=== PATIENT | female | born 1935 | race Caucasian/White ===

== ENCOUNTER 2018-04-21 07:20 | Emergency (ER) | payer MEDICARE, BC ==
[~2018-04-21] VITALS: Ht 162.6 cm; Wt 89.0 kg
[~2018-04-21 07:20] MED LIST: DOCU100C40 PO; ESCI5TAB12 PO; FLO0.4C PO; HYDR12.597 PO; METH-348 PO; MIRT-92 PO; OLAN-1 PO; OXYB5TAB11 PO; POLY15DR57 EACHEYE; TOBDEXOO EACHEYE
[2018-04-21 09:05] LABS: BASOPHILS % (AUTO) 0.3 % (0-1); EOSINOPHILS # (AUTO) 0.3 X10'3 (0-0.9); EOSINOPHILS % (AUTO) 4.2 % (0-6); HEMOGLOBIN 11.4 g/dl (12.0-16.0); LYMPHOCYTES # (AUTO) 2.3 X10'3 (1.1-4.8); LYMPHOCYTES % (AUTO) 29.4 % (21-51); MEAN CORPUSCULAR HGB CONC 33.4 % (33.0-36.5); MEAN CORPUSCULAR VOLUME 95.8 FL (78-98); MEAN PLATELET VOLUME 9.1 FL (7.4-10.4); MONOCYTES # (AUTO) 0.7 X10'3 (0-0.9); MONOCYTES % (AUTO) 8.7 % (2-12); NEUTROPHILS # (AUTO) 4.4 X10'3 (1.8-7.7); NEUTROPHILS % (AUTO) 57.4 % (42-75); PLATELET COUNT 234 X10'3 (140-440); RED BLOOD COUNT 3.55 X10'6 (4.20-5.60); RED CELL DISTRIBUTION WIDTH 15.4 % (11.5-14.5); WHITE BLOOD COUNT 7.7 X10'3 (4.5-11.0)
[2018-04-21 09:08] LABS: ALANINE AMINOTRANSFERASE 24 U/L (12-78); ALBUMIN 3.8 G/DL (3.4-5.0); ALBUMIN/GLOBULIN RATIO 0.9 (1.1-1.5); ALKALINE PHOSPHATASE 91 IU/L (46-116); ANION GAP 10 (8-16); ASPARTATE AMINO TRANSFERASE 24 U/L (10-37); BILIRUBIN,TOTAL 0.3 MG/DL (0.1-1.0); BLOOD UREA NITROGEN 17 MG/DL (7-18); BUN/CREATININE RATIO 15.2 (6.6-38.0); CALCIUM 8.9 MG/DL (8.5-10.1); CHLORIDE 107 MMOL/L (99-107); CREATININE 1.12 MG/DL (0.40-0.90); GLUCOSE 88 MG/DL (70-104); POTASSIUM 4.1 MMOL/L (3.5-5.1); SODIUM 140 MMOL/L (135-145); TOTAL CARBON DIOXIDE 22.8 MMOL/L (24-32); TOTAL PROTEIN 8.1 G/DL (6.4-8.2); eGFR 46 ML/MIN
[2018-04-21 09:13] LABS: PARTIAL THROMBOPLASTIN TIME 28 SECONDS (22-32); PROTHROMBIN TIME 10.7 SECONDS (9.0-12.0)
[2018-04-21] MEDS ORDERED: HYDROcodone/acetaminophen 5mg/325mg tablet PO ONE (09:15)
[2018-04-21 09:16] LABS: MAGNESIUM 2.2 MG/DL (1.5-2.4)
[2018-04-21 09:38] LABS: ETHANOL < 0.010 GM/DL (0.0-0.010)
[2018-04-21 10:32] VITALS: BP 120/56
== END 2018-04-21 10:54 | disposition home or self-care (01) ==
LOC: ER 07:21
DX: S09.90XA Unspecified injury of head, initial encounter (principal); M79.645 Pain in left finger(s); M25.512 Pain in left shoulder; M25.552 Pain in left hip; G89.29 Other chronic pain; Z90.49 Acquired absence of other specified parts of digestive tract; Z88.5 Allergy status to narcotic agent; Z79.899 Other long term (current) drug therapy; Z98.890 Other specified postprocedural states; W19.XXXA Unspecified fall, initial encounter; Y93.89 Activity, other specified; Y92.89 Other specified places as the place of occurrence of the external cause; Y99.8 Other external cause status
CPT/HCPCS: 36415; 70450; 70486; 71045; 72125; 73030; 73140; 73502; 80053; 80320; 83735; 83880; 84484; 85025; 85610; 85730; 93005; 99285; A6449

== ENCOUNTER 2018-06-22 16:08 | Inpatient (IN) | payer MEDICARE, BC ==
[~2018-06-22] VITALS: Ht 162.6 cm; Wt 86.3 kg
[2018-06-22] MEDS ORDERED: normal saline 1000ML IV soln IVB ONE (16:15)
[2018-06-22 16:27] LABS: BASOPHILS % (AUTO) 0.3 % (0-1); EOSINOPHILS # (AUTO) 0.3 X10'3 (0-0.9); EOSINOPHILS % (AUTO) 5.2 % (0-6); HEMATOCRIT 31.9 % (35.0-45.0); HEMOGLOBIN 10.5 g/dl (12.0-16.0); LYMPHOCYTES # (AUTO) 1.6 X10'3 (1.1-4.8); LYMPHOCYTES % (AUTO) 25.7 % (21-51); MEAN CORPUSCULAR HEMOGLOBIN 30.7 PG (27.0-31.0); MEAN CORPUSCULAR HGB CONC 32.9 % (33.0-36.5); MEAN CORPUSCULAR VOLUME 93.2 FL (78-98); MEAN PLATELET VOLUME 8.8 FL (7.4-10.4); MONOCYTES # (AUTO) 0.7 X10'3 (0-0.9); MONOCYTES % (AUTO) 11.4 % (2-12); NEUTROPHILS # (AUTO) 3.5 X10'3 (1.8-7.7); NEUTROPHILS % (AUTO) 57.4 % (42-75); PLATELET COUNT 209 X10'3 (140-440); RED BLOOD COUNT 3.42 X10'6 (4.20-5.60); RED CELL DISTRIBUTION WIDTH 14.4 % (11.5-14.5); WHITE BLOOD COUNT 6.1 X10'3 (4.5-11.0)
[2018-06-22 16:48] LABS: ANION GAP 9 (8-16); BILIRUBIN,TOTAL 0.3 MG/DL (0.1-1.0); BLOOD UREA NITROGEN 29 MG/DL (7-18); BUN/CREATININE RATIO 19.7 (6.6-38.0); CALCIUM 8.2 MG/DL (8.5-10.1); CHLORIDE 102 MMOL/L (99-107); CREATININE 1.47 MG/DL (0.40-0.90); GLUCOSE 103 MG/DL (70-104); POTASSIUM 3.8 MMOL/L (3.5-5.1); SODIUM 139 MMOL/L (135-145); TOTAL CARBON DIOXIDE 27.7 MMOL/L (24-32); TOTAL PROTEIN 7.4 G/DL (6.4-8.2); eGFR 34 ML/MIN
[2018-06-22 16:49] LABS: ALANINE AMINOTRANSFERASE 25 U/L (12-78); ALBUMIN 3.3 G/DL (3.4-5.0); ALBUMIN/GLOBULIN RATIO 0.8 (1.1-1.5); ALKALINE PHOSPHATASE 99 IU/L (46-116); ASPARTATE AMINO TRANSFERASE 24 U/L (10-37)
[2018-06-22 16:56] LABS: TROPONIN I < 0.04 NG/ML (0.0-0.05)
[2018-06-22] MEDS: normal saline 1000ml 1,000 ML IV SCH ×2 (17:32→20:36)
[2018-06-22] MEDS ORDERED: magnesium 1gm/100ml D5W IVPB 100 ML IV PRN (17:35)
[2018-06-22] MEDS ORDERED: potassium Cl 20 mEq SR tablet PO PRN (17:35)
[2018-06-22] MEDS ORDERED: magnesium Cl slow-release 64mg tablet PO PRN (17:35)
[2018-06-22] MEDS ORDERED: ondansetron/PF 4mg/2ml inj IV PRN (17:35)
[2018-06-22] MEDS ORDERED: CefTRIAXone 2gm/D5W 50ml 50 ML IV ONE (17:35)
[2018-06-22] MEDS ORDERED: magnesium hydroxide 30ml (MOM) UD suspension PO PRN (17:35)
[2018-06-22] MEDS ORDERED: mag hydrox/Alum hydrox/simeth 30ml oral suspension PO PRN (17:35)
[2018-06-22] MEDS ORDERED: magnesium 4gm in 100ml NS 100 ML IV PRN (17:35)
[2018-06-22] MEDS ORDERED: potassium Cl 40MEQ/NS 500ml 500 ML IV PRN ×2 (17:35)
[2018-06-22 19:30] VITALS: BP 113/41
[2018-06-22] MEDS: acetaminophen 325mg tablet PO PRN (20:21)
[2018-06-22] MEDS ORDERED: LYSI500T40 PO (20:29)
[2018-06-22] MEDS ORDERED: CALC-467 PO (20:29)
[2018-06-22] MEDS ORDERED: D-3 PO (20:29)
[2018-06-22] MEDS ORDERED: ESCI20TA38 PO (20:29)
[2018-06-22] MEDS ORDERED: DOCU250C4 PO (20:29)
[2018-06-22] MEDS ORDERED: VITAMIN C TABLET PO (20:29)
[2018-06-22] MEDS ORDERED: FURO40TA4 PO (20:29)
[2018-06-22] MEDS ORDERED: MULT-1074 PO (20:29)
[2018-06-22] MEDS ORDERED: GLUC-131 PO (20:29)
[2018-06-22] MEDS: heparin, porcine 5000 units/ml vial SQ SCH (20:31)
[2018-06-22] MEDS ORDERED: olanzapine 10mg tablet PO ONE (21:40)
[2018-06-22] MEDS ORDERED: mirtazapine 15mg tablet PO ONE (21:40)
[2018-06-22 22:00] VITALS: BP 113/50
[2018-06-23 05:57] LABS: BASOPHILS % (AUTO) 0.6 % (0-1); EOSINOPHILS # (AUTO) 0.3 X10'3 (0-0.9); EOSINOPHILS % (AUTO) 6.2 % (0-6); HEMOGLOBIN 9.6 g/dl (12.0-16.0); LYMPHOCYTES # (AUTO) 1.8 X10'3 (1.1-4.8); LYMPHOCYTES % (AUTO) 35.7 % (21-51); MEAN CORPUSCULAR HEMOGLOBIN 30.9 PG (27.0-31.0); MEAN CORPUSCULAR HGB CONC 33.1 % (33.0-36.5); MEAN CORPUSCULAR VOLUME 93.4 FL (78-98); MEAN PLATELET VOLUME 9.1 FL (7.4-10.4); MONOCYTES # (AUTO) 0.6 X10'3 (0-0.9); MONOCYTES % (AUTO) 11.8 % (2-12); NEUTROPHILS # (AUTO) 2.3 X10'3 (1.8-7.7); NEUTROPHILS % (AUTO) 45.7 % (42-75); PLATELET COUNT 166 X10'3 (140-440); RED BLOOD COUNT 3.11 X10'6 (4.20-5.60); WHITE BLOOD COUNT 5.1 X10'3 (4.5-11.0)
[2018-06-23 06:00] VITALS: BP 133/62
[2018-06-23 06:35] LABS: ALANINE AMINOTRANSFERASE 15 U/L (12-78); ALBUMIN 2.6 G/DL (3.4-5.0); ALBUMIN/GLOBULIN RATIO 0.7 (1.1-1.5); ALKALINE PHOSPHATASE 77 IU/L (46-116); ANION GAP 5 (8-16); ASPARTATE AMINO TRANSFERASE 18 U/L (10-37); BILIRUBIN,TOTAL 0.3 MG/DL (0.1-1.0); BLOOD UREA NITROGEN 23 MG/DL (7-18); BUN/CREATININE RATIO 21.3 (6.6-38.0); CALCIUM 8.2 MG/DL (8.5-10.1); CHLORIDE 110 MMOL/L (99-107); CREATININE 1.08 MG/DL (0.40-0.90); GLUCOSE 88 MG/DL (70-104); MAGNESIUM 2.2 MG/DL (1.5-2.4); POTASSIUM 3.6 MMOL/L (3.5-5.1); SODIUM 143 MMOL/L (135-145); TOTAL PROTEIN 6.2 G/DL (6.4-8.2); eGFR 48 ML/MIN
[2018-06-23] MEDS: K and/or MAG REPLACEMENT MC SCH (08:00)
[2018-06-23] MEDS: heparin, porcine 5000 units/ml vial SQ SCH ×2 (08:07→20:37)
[2018-06-23] MEDS: CefTRIAXone/D5W-Rocephin 1gm 50 ML IV SCH (08:10)
[2018-06-23] MEDS ORDERED: POTA10TA21 PO (08:58)
[2018-06-23 10:00] VITALS: BP 113/57
[2018-06-23] MEDS ORDERED: pneumococcal 23-VAL P-sac vacc 25 mcg/0.5ml vial IMVAC ONE (10:00)
[2018-06-23] MEDS ORDERED: docusate sod 250mg capsule PO PRN (12:50)
[2018-06-23] MEDS ORDERED: escitalopram 20mg tablet PO SCH (12:50)
[2018-06-23 13:50] VITALS: BP 126/51
[2018-06-23 13:51] VITALS: BP_SYST 113; BP_SYST 119; BP_DIAS 57; BP_DIAS 61
[2018-06-23 18:00] VITALS: BP 114/49
[2018-06-23] MEDS: mirtazapine 15mg tablet PO SCH (20:34)
[2018-06-23] MEDS: olanzapine 10mg tablet PO SCH (20:35)
[2018-06-23] MEDS: lactobacillus rhamnosus 10,000 MMU CELLS/CAPSULE PO SCH (20:35)
[2018-06-23] MEDS: oxybutynin 5mg tablet PO SCH (20:36)
[2018-06-23] MEDS ORDERED: olanzapine 10mg tablet PO SCH (21:00)
[2018-06-23] MEDS ORDERED: mirtazapine 15mg tablet PO SCH (21:00)
[2018-06-23 22:00] VITALS: BP 113/49
[2018-06-24] MEDS: normal saline 1000ml 1,000 ML IV SCH ×2 (03:00→12:26)
[2018-06-24 06:00] VITALS: BP 133/51
[2018-06-24 06:10] LABS: BASOPHILS % (AUTO) 0.4 % (0-1); EOSINOPHILS # (AUTO) 0.3 X10'3 (0-0.9); EOSINOPHILS % (AUTO) 5.1 % (0-6); HEMOGLOBIN 9.5 g/dl (12.0-16.0); LYMPHOCYTES % (AUTO) 29.6 % (21-51); MEAN CORPUSCULAR HEMOGLOBIN 30.7 PG (27.0-31.0); MEAN CORPUSCULAR HGB CONC 32.8 % (33.0-36.5); MEAN CORPUSCULAR VOLUME 93.6 FL (78-98); MEAN PLATELET VOLUME 9.3 FL (7.4-10.4); MONOCYTES # (AUTO) 0.8 X10'3 (0-0.9); MONOCYTES % (AUTO) 11.8 % (2-12); NEUTROPHILS # (AUTO) 3.6 X10'3 (1.8-7.7); NEUTROPHILS % (AUTO) 53.1 % (42-75); PLATELET COUNT 165 X10'3 (140-440); RED CELL DISTRIBUTION WIDTH 13.9 % (11.5-14.5); WHITE BLOOD COUNT 6.8 X10'3 (4.5-11.0)
[2018-06-24 06:36] LABS: ALANINE AMINOTRANSFERASE 17 U/L (12-78); ALBUMIN 2.7 G/DL (3.4-5.0); ALBUMIN/GLOBULIN RATIO 0.7 (1.1-1.5); ALKALINE PHOSPHATASE 83 IU/L (46-116); ANION GAP 10 (8-16); ASPARTATE AMINO TRANSFERASE 18 U/L (10-37); BILIRUBIN,TOTAL 0.4 MG/DL (0.1-1.0); BLOOD UREA NITROGEN 13 MG/DL (7-18); BUN/CREATININE RATIO 13.8 (6.6-38.0); CHLORIDE 109 MMOL/L (99-107); CREATININE 0.94 MG/DL (0.40-0.90); GLUCOSE 85 MG/DL (70-104); MAGNESIUM 1.9 MG/DL (1.5-2.4); POTASSIUM 3.2 MMOL/L (3.5-5.1); SODIUM 144 MMOL/L (135-145); TOTAL CARBON DIOXIDE 25.5 MMOL/L (24-32); TOTAL PROTEIN 6.4 G/DL (6.4-8.2); eGFR 57 ML/MIN
[2018-06-24] MEDS ORDERED: LYSINE HCL 1000 MG PO SCH (08:00)
[2018-06-24] MEDS ORDERED: non-formulary drug (Multivitamin (Multi-Vitamin Daily) 1 EACH) PO SCH (08:00)
[2018-06-24] MEDS: K and/or MAG REPLACEMENT MC SCH (08:00)
[2018-06-24] MEDS: methylphenidate 5mg tablet PO SCH (08:42)
[2018-06-24] MEDS: lactobacillus rhamnosus 10,000 MMU CELLS/CAPSULE PO SCH ×2 (08:42→20:20)
[2018-06-24] MEDS: citalopram 20mg tablet PO SCH (08:42)
[2018-06-24] MEDS: potassium Cl 20 mEq SR tablet PO PRN ×3 (08:42→16:57)
[2018-06-24] MEDS: multivitamins, therapeutics tablet PO SCH (08:42)
[2018-06-24] MEDS: heparin, porcine 5000 units/ml vial SQ SCH ×2 (08:42→20:21)
[2018-06-24] MEDS: oxybutynin 5mg tablet PO SCH ×2 (08:42→20:20)
[2018-06-24] MEDS: CefTRIAXone/D5W-Rocephin 1gm 50 ML IV SCH (08:43)
[2018-06-24] MEDS: acetaminophen 325mg tablet PO PRN (08:58)
[2018-06-24 10:00] VITALS: BP 121/50
[2018-06-24] MEDS ORDERED: LORazepam 2 mg/ml vial IV ONE (12:00)
[2018-06-24 18:00] VITALS: BP 130/55
[2018-06-24] MEDS: mirtazapine 15mg tablet PO SCH (20:20)
[2018-06-24] MEDS: olanzapine 10mg tablet PO SCH (20:20)
[2018-06-24 22:00] VITALS: BP 130/68
[2018-06-25] MEDS: normal saline 1000ml 1,000 ML IV SCH (01:31)
[2018-06-25 05:16] VITALS: BP_SYST 128; BP_SYST 140; BP_SYST 155; BP_DIAS 51; BP_DIAS 64; BP_DIAS 70
[2018-06-25 06:00] VITALS: BP 128/51
[2018-06-25 07:04] LABS: BASOPHILS % (AUTO) 0.3 % (0-1); EOSINOPHILS # (AUTO) 0.3 X10'3 (0-0.9); HEMATOCRIT 28.1 % (35.0-45.0); HEMOGLOBIN 9.1 g/dl (12.0-16.0); LYMPHOCYTES # (AUTO) 1.7 X10'3 (1.1-4.8); LYMPHOCYTES % (AUTO) 26.8 % (21-51); MEAN CORPUSCULAR HEMOGLOBIN 30.4 PG (27.0-31.0); MEAN CORPUSCULAR HGB CONC 32.4 % (33.0-36.5); MEAN CORPUSCULAR VOLUME 93.8 FL (78-98); MEAN PLATELET VOLUME 9.5 FL (7.4-10.4); MONOCYTES # (AUTO) 0.7 X10'3 (0-0.9); MONOCYTES % (AUTO) 11.2 % (2-12); NEUTROPHILS # (AUTO) 3.7 X10'3 (1.8-7.7); NEUTROPHILS % (AUTO) 57.7 % (42-75); PLATELET COUNT 156 X10'3 (140-440); RED BLOOD COUNT 2.99 X10'6 (4.20-5.60); RED CELL DISTRIBUTION WIDTH 14.4 % (11.5-14.5); WHITE BLOOD COUNT 6.4 X10'3 (4.5-11.0)
[2018-06-25 07:16] LABS: % IRON SATURATION 23 % (11-46); IRON 49 UG/DL (49-151); TOTAL IRON BINDING CAPACITY 216 UG/DL (259-388)
[2018-06-25 07:35] LABS: ALANINE AMINOTRANSFERASE 14 U/L (12-78); ALBUMIN 2.5 G/DL (3.4-5.0); ALBUMIN/GLOBULIN RATIO 0.7 (1.1-1.5); ALKALINE PHOSPHATASE 77 IU/L (46-116); ANION GAP 8 (8-16); ASPARTATE AMINO TRANSFERASE 19 U/L (10-37); BILIRUBIN,TOTAL 0.4 MG/DL (0.1-1.0); BLOOD UREA NITROGEN 9 MG/DL (7-18); CALCIUM 7.6 MG/DL (8.5-10.1); CHLORIDE 111 MMOL/L (99-107); CREATININE 0.82 MG/DL (0.40-0.90); GLUCOSE 81 MG/DL (70-104); MAGNESIUM 1.8 MG/DL (1.5-2.4); POTASSIUM 3.3 MMOL/L (3.5-5.1); SODIUM 144 MMOL/L (135-145); TOTAL CARBON DIOXIDE 24.9 MMOL/L (24-32); eGFR 66 ML/MIN
[2018-06-25 07:38] LABS: FERRITIN 32 NG/ML (8-252)
[2018-06-25] MEDS: K and/or MAG REPLACEMENT MC SCH (08:00)
[2018-06-25] MEDS: CefTRIAXone/D5W-Rocephin 1gm 50 ML IV SCH (08:14)
[2018-06-25] MEDS: potassium Cl 20 mEq SR tablet PO PRN (08:15)
[2018-06-25] MEDS: citalopram 20mg tablet PO SCH (08:15)
[2018-06-25] MEDS: lactobacillus rhamnosus 10,000 MMU CELLS/CAPSULE PO SCH (08:16)
[2018-06-25] MEDS: multivitamins, therapeutics tablet PO SCH (08:16)
[2018-06-25] MEDS: oxybutynin 5mg tablet PO SCH (08:16)
[2018-06-25] MEDS: methylphenidate 5mg tablet PO SCH (08:16)
[2018-06-25] MEDS: heparin, porcine 5000 units/ml vial SQ SCH (08:17)
[2018-06-25 10:00] VITALS: BP 111/47
[2018-06-25] MEDS ORDERED: LACT1CAP26 PO (13:15)
[2018-06-25] MEDS ORDERED: CEPH250T PO (13:15)
== END 2018-06-25 17:10 | disposition home health service (06) | DRG 602 ==
LOC: ER 16:08 → ED HOLD 17:32 → EDBEDREQ 18:54 → ORTHO 4S 19:47
PROVIDERS: ADMIT Internal Medicine; ATTEND Family Medicine
DX: L03.115 Cellulitis of right lower limb (principal); N17.0 Acute kidney failure with tubular necrosis; L03.116 Cellulitis of left lower limb; I95.1 Orthostatic hypotension; N18.9 Chronic kidney disease, unspecified; R29.6 Repeated falls; S00.03XA Contusion of scalp, initial encounter; S46.911A Strain of unspecified muscle, fascia and tendon at shoulder and upper arm level, right arm, initial encounter; F32.9 Major depressive disorder, single episode, unspecified; F41.9 Anxiety disorder, unspecified; G89.29 Other chronic pain; M54.9 Dorsalgia, unspecified; I89.0 Lymphedema, not elsewhere classified; E86.0 Dehydration; W18.39XA Other fall on same level, initial encounter; D63.8 Anemia in other chronic diseases classified elsewhere; E87.6 Hypokalemia; N32.81 Overactive bladder; Z90.49 Acquired absence of other specified parts of digestive tract; Z23 Encounter for immunization; Z88.5 Allergy status to narcotic agent; Z79.899 Other long term (current) drug therapy; Z87.440 Personal history of urinary (tract) infections; Z80.9 Family history of malignant neoplasm, unspecified; Z80.1 Family history of malignant neoplasm of trachea, bronchus and lung; Z81.8 Family history of other mental and behavioral disorders; Z82.5 Family history of asthma and other chronic lower respiratory diseases; Y93.89 Activity, other specified; Y92.89 Other specified places as the place of occurrence of the external cause; Y99.8 Other external cause status
CPT/HCPCS: 36415; 70450; 70551; 71045; 73030; 80053; 82728; 83540; 83550; 83735; 83880; 84484; 85025; 87070; 93005; 93306; 93880; 97110; 97116; 97161; 99285; G0378; J0696; J1644; J2060; J3490; J7030

== ENCOUNTER 2018-07-09 05:34 | Emergency (ER) | payer MEDICARE, BC ==
[~2018-07-09] VITALS: Ht 167.6 cm; Wt 90.9 kg
[~2018-07-09 05:34] MED LIST changes: +CALC-467 PO; +CEPH250T PO; +D-3 PO; -DOCU100C40 PO; +DOCU250C4 PO; +ESCI20TA38 PO; -ESCI5TAB12 PO; -FLO0.4C PO; +GLUC-131 PO; -HYDR12.597 PO; +LACT1CAP26 PO; +LYSI500T40 PO; +MULT-1074 PO; -POLY15DR57 EACHEYE; -TOBDEXOO EACHEYE; +VITAMIN C TABLET PO
[2018-07-09] MEDS ORDERED: TETanus/Pertussis (Acell)/Diphther VAC/PF (Tdap-Adult) 0.5ml syringe IM ONE (06:30)
[2018-07-09] MEDS ORDERED: ACET-3068 PO (07:07)
[2018-07-09] MEDS ORDERED: HYDROcodone/acetaminophen 5mg/325mg tablet PO ONE (07:10)
[2018-07-09] MEDS ORDERED: ibuprofen 200mg tablet PO ONE (07:25)
[2018-07-09 07:32] VITALS: BP 127/61
== END 2018-07-09 07:42 | disposition home or self-care (01) ==
LOC: ER 05:34
DX: S00.531A Contusion of lip, initial encounter (principal); S00.31XA Abrasion of nose, initial encounter; G89.29 Other chronic pain; Z90.49 Acquired absence of other specified parts of digestive tract; Z88.5 Allergy status to narcotic agent; Z79.2 Long term (current) use of antibiotics; Z79.899 Other long term (current) drug therapy; Z87.891 Personal history of nicotine dependence; W06.XXXA Fall from bed, initial encounter; Y93.89 Activity, other specified; Y92.89 Other specified places as the place of occurrence of the external cause; Y99.8 Other external cause status
CPT/HCPCS: 90471; 90715; 99283

== ENCOUNTER 2018-11-21 16:06 | Inpatient (IN) | payer MEDICARE, BC | END 2018-11-28 15:30 | LOC: SUR 3N 11-23 05:44 → ER 16:06 → ED HOLD 20:35 → SUR 3N 22:17 | DX: A41.9 Sepsis, unspecified organism (principal); G93.41 Metabolic encephalopathy; L03.115 Cellulitis of right lower limb; L03.116 Cellulitis of left lower limb; G93.40 Encephalopathy, unspecified; E44.0 Moderate protein-calorie malnutrition; R65.20 Severe sepsis without septic shock; E86.0 Dehydration; F02.80 Dementia in other diseases classified elsewhere, unspecified severity, without behavioral disturbance, psychotic disturbance, mood disturbance, and anxiety; I89.0 Lymphedema, not elsewhere classified ==

== ENCOUNTER 2021-03-12 19:29 | Emergency (ER) | payer MEDICARE, BC ==
[~2021-03-12] VITALS: Ht 165.1 cm; Wt 72.0 kg
[~2021-03-12 19:29] MED LIST changes: +ASCO-134 PO; -CALC-467 PO; -CEPH250T PO; -D-3 PO; -DOCU250C4 PO; +DONE5TAB7 PO; -ESCI20TA38 PO; +ESCI20TA39 PO; -GLUC-131 PO; -LACT1CAP26 PO; -LYSI500T40 PO; -METH-348 PO; +METH5TAB4 PO; -MULT-1074 PO; +MULT-1085 PO; -OLAN-1 PO; -OXYB5TAB11 PO; +OXYB5TAB16 PO; +VALA500T41 PO; -VITAMIN C TABLET PO
--- NOTE | 2021-03-12 19:56 | NUR ---
DAUGHTER SILVIA POE PHONE NUMBER [phone]
[2021-03-12] MEDS ORDERED: CHOL200013 (20:05)
[2021-03-12 20:06] LABS: BASOPHILS # (AUTO) 0.1 X10'3 (0-0.2); BASOPHILS % (AUTO) 0.6 % (0-1); EOSINOPHILS # (AUTO) 0.2 X10'3 (0-0.9); EOSINOPHILS % (AUTO) 2.2 % (0-6); HEMATOCRIT 35.3 % (35.0-45.0); HEMOGLOBIN 11.7 g/dl (12.0-16.0); LYMPHOCYTES % (AUTO) 24.3 % (21-51); MEAN CORPUSCULAR HEMOGLOBIN 31.6 PG (27.0-31.0); MEAN CORPUSCULAR HGB CONC 33.2 g/dL (33.0-36.5); MEAN CORPUSCULAR VOLUME 95.1 FL (78-98); MEAN PLATELET VOLUME 9.4 FL (7.4-10.4); MONOCYTES % (AUTO) 11.3 % (2-12); NEUTROPHILS # (AUTO) 5.2 X10'3 (1.8-7.7); NEUTROPHILS % (AUTO) 61.6 % (42-75); PLATELET COUNT 261 X10'3 (140-440); RED BLOOD COUNT 3.71 X10'6 (4.20-5.60); RED CELL DISTRIBUTION WIDTH 15.4 % (11.5-14.5); WHITE BLOOD COUNT 8.4 X10'3 (4.5-11.0)
[2021-03-12 20:24] LABS: ALANINE AMINOTRANSFERASE 23 U/L (12-78); ALBUMIN 3.1 G/DL (3.4-5.0); ALBUMIN/GLOBULIN RATIO 0.6 (1.1-1.5); ALKALINE PHOSPHATASE 81 IU/L (46-116); ANION GAP 10 (8-16); ASPARTATE AMINO TRANSFERASE 38 U/L (10-37); BILIRUBIN,TOTAL 0.4 MG/DL (0.1-1.0); BLOOD UREA NITROGEN 20 MG/DL (7-18); BUN/CREATININE RATIO 16.7 (6.6-38.0); CALCIUM 8.9 MG/DL (8.5-10.1); CHLORIDE 102 MMOL/L (99-107); GLUCOSE 126 MG/DL (70-104); LIPASE 133 U/L (73-393); POTASSIUM 4.2 MMOL/L (3.5-5.1); SODIUM 137 MMOL/L (135-145); TOTAL CARBON DIOXIDE 24.9 MMOL/L (24-32); TOTAL PROTEIN 8.6 G/DL (6.4-8.2); eGFR 42 ML/MIN
--- NOTE | 2021-03-12 21:08 | NUR ---
Patient resting in stretcher- waiting to be seen by provider. Even and unlabored respiorations- no complaints at this time states she is "feeling pretty good".
[2021-03-12] MEDS ORDERED: iohexol 300mg/ml 100ml inj. ONE (22:13)
--- NOTE | 2021-03-12 22:21 | NUR ---
patient taken to CT
[2021-03-13 00:31] VITALS: BP 101/60
== END 2021-03-13 00:32 | disposition home or self-care (01) ==
LOC: ER 19:30
DX: R10.31 Right lower quadrant pain (principal); K59.00 Constipation, unspecified; Z87.440 Personal history of urinary (tract) infections; Z98.890 Other specified postprocedural states; Z79.899 Other long term (current) drug therapy
CPT/HCPCS: 36415; 74177; 80053; 83690; 85025; 99285; Q9967

== ENCOUNTER 2021-03-24 14:59 | Observation (INO) | payer MEDICARE, BC ==
[~2021-03-24] VITALS: Ht 165.1 cm; Wt 59.1 kg
[2021-03-24 11:30] VITALS: BP 122/60
[~2021-03-24 14:59] MED LIST changes: +CHOL200013 PO
[2021-03-24 16:36] LABS: BASOPHILS # (AUTO) 0.1 X10'3 (0-0.2); BASOPHILS % (AUTO) 0.8 % (0-1); EOSINOPHILS # (AUTO) 0.3 X10'3 (0-0.9); EOSINOPHILS % (AUTO) 4.1 % (0-6); HEMATOCRIT 33.6 % (35.0-45.0); HEMOGLOBIN 11.2 g/dl (12.0-16.0); LYMPHOCYTES # (AUTO) 2.4 X10'3 (1.1-4.8); LYMPHOCYTES % (AUTO) 31.7 % (21-51); MEAN CORPUSCULAR HEMOGLOBIN 31.9 PG (27.0-31.0); MEAN CORPUSCULAR HGB CONC 33.3 g/dL (33.0-36.5); MEAN CORPUSCULAR VOLUME 95.9 FL (78-98); MEAN PLATELET VOLUME 9.3 FL (7.4-10.4); MONOCYTES # (AUTO) 0.7 X10'3 (0-0.9); MONOCYTES % (AUTO) 9.1 % (2-12); NEUTROPHILS # (AUTO) 4.2 X10'3 (1.8-7.7); NEUTROPHILS % (AUTO) 54.3 % (42-75); PLATELET COUNT 239 X10'3 (140-440); RED BLOOD COUNT 3.51 X10'6 (4.20-5.60); RED CELL DISTRIBUTION WIDTH 15.3 % (11.5-14.5); WHITE BLOOD COUNT 7.7 X10'3 (4.5-11.0)
[2021-03-24] MEDS ORDERED: predniSONE 20 mg tablet PO ONE (16:40)
[2021-03-24] MEDS ORDERED: fluconazole 150mg tablet PO ONE (16:40)
[2021-03-24] MEDS ORDERED: ondansetron/PF 4mg/2ml inj IV PRN (16:40)
[2021-03-24] MEDS ORDERED: mag hydrox/Alum hydrox/simeth 30ml oral suspension PO PRN (16:40)
[2021-03-24] MEDS ORDERED: acetaminophen 325mg tablet PO PRN (16:40)
[2021-03-24] MEDS ORDERED: magnesium hydroxide 30ml (MOM) UD suspension PO PRN (16:40)
[2021-03-24] MEDS ORDERED: VALA500T41 PO (16:51)
[2021-03-24] MEDS ORDERED: MIRT-87 PO (16:51)
[2021-03-24] MEDS ORDERED: OXYB5TAB16 PO (16:51)
[2021-03-24 16:56] LABS: ALANINE AMINOTRANSFERASE 24 U/L (12-78); ALBUMIN 3.5 G/DL (3.4-5.0); ALBUMIN/GLOBULIN RATIO 0.7 (1.1-1.5); ALKALINE PHOSPHATASE 80 IU/L (46-116); ANION GAP 11 (8-16); ASPARTATE AMINO TRANSFERASE 31 U/L (10-37); BILIRUBIN,TOTAL 0.3 MG/DL (0.1-1.0); BLOOD UREA NITROGEN 31 MG/DL (7-18); BUN/CREATININE RATIO 25.6 (6.6-38.0); C-REACTIVE PROTEIN 0.35 MG/DL (0.0-0.5); CALCIUM 8.6 MG/DL (8.5-10.1); CHLORIDE 104 MMOL/L (99-107); CREATININE 1.21 MG/DL (0.40-0.90); GLUCOSE 90 MG/DL (70-104); POTASSIUM 4.3 MMOL/L (3.5-5.1); SODIUM 137 MMOL/L (135-145); TOTAL CARBON DIOXIDE 22.3 MMOL/L (24-32); TOTAL PROTEIN 8.5 G/DL (6.4-8.2); eGFR 42 ML/MIN
[2021-03-24] MEDS: nystatin 500,000 unit/5ML UD oral suspension PO SCH (20:16)
[2021-03-24] MEDS: diphenhydrAMINE 25mg capsule PO SCH (20:16)
[2021-03-24] MEDS: oxybutynin 5mg tablet PO SCH (20:17)
[2021-03-24 20:24] LABS: CLARITY,URINE SLIGHTLY CLOUDY (Clear); COLOR,URINE YELLOW (Yellow); GLUCOSE, URINE NEGATIVE (Neg); KETONES,URINE NEGATIVE (Neg); LEUKOCYTE ESTERASE ,URINE MODERATE (Neg); NITRITES, URINE NEGATIVE (Neg); OCCULT BLOOD,URINE NEGATIVE (Neg); PROTEIN,URINE NEGATIVE (Neg); UROBILINOGEN,URINE 0.2 E.U/dL (0.2-1.0)
[2021-03-24 20:30] LABS: UA COLLECTION TYPE STRAIGHT CATH
[2021-03-24 20:31] LABS: BACTERIA,URINE FEW /HPF (Neg); RBC,URINE 0-2 /HPF (0-2); SQUAMOUS EPITHELIAL CELL,UR FEW /LPF (FEW)
[2021-03-24] MEDS ORDERED: mirtazapine 15mg tablet PO SCH (21:00)
[2021-03-24] MEDS ORDERED: donepezil 5mg tablet PO SCH (21:00)
[2021-03-24] MEDS ORDERED: temazepam 15mg capsule PO ONE (22:45)
[2021-03-24 23:30] VITALS: BP 122/60
[2021-03-25] MEDS: diphenhydrAMINE 25mg capsule PO SCH ×2 (02:27→09:00)
[2021-03-25 05:53] LABS: BASOPHILS % (AUTO) 0.2 % (0-1); EOSINOPHILS % (AUTO) 0.1 % (0-6); HEMATOCRIT 34.6 % (35.0-45.0); HEMOGLOBIN 11.5 g/dl (12.0-16.0); LYMPHOCYTES # (AUTO) 1.4 X10'3 (1.1-4.8); LYMPHOCYTES % (AUTO) 26.2 % (21-51); MEAN CORPUSCULAR HEMOGLOBIN 32.3 PG (27.0-31.0); MEAN CORPUSCULAR HGB CONC 33.4 g/dL (33.0-36.5); MEAN CORPUSCULAR VOLUME 96.8 FL (78-98); MEAN PLATELET VOLUME 9.5 FL (7.4-10.4); MONOCYTES # (AUTO) 0.1 X10'3 (0-0.9); MONOCYTES % (AUTO) 2.3 % (2-12); NEUTROPHILS # (AUTO) 3.9 X10'3 (1.8-7.7); NEUTROPHILS % (AUTO) 71.2 % (42-75); PLATELET COUNT 222 X10'3 (140-440); RED BLOOD COUNT 3.57 X10'6 (4.20-5.60); RED CELL DISTRIBUTION WIDTH 15.4 % (11.5-14.5); WHITE BLOOD COUNT 5.4 X10'3 (4.5-11.0)
[2021-03-25 06:14] LABS: ALBUMIN 3.4 G/DL (3.4-5.0); ANION GAP 10 (8-16); BLOOD UREA NITROGEN 29 MG/DL (7-18); CALCIUM 8.8 MG/DL (8.5-10.1); CHLORIDE 103 MMOL/L (99-107); CREATININE 1.16 MG/DL (0.40-0.90); GLUCOSE 129 MG/DL (70-104); POTASSIUM 4.8 MMOL/L (3.5-5.1); SODIUM 137 MMOL/L (135-145); TOTAL CARBON DIOXIDE 24.3 MMOL/L (24-32); eGFR 44 ML/MIN
--- NOTE | 2021-03-25 06:28 | NUR ---
Problems reprioritized. Patient report given, questions answered & plan of care reviewed with TAVIA SWANSON.
--- NOTE | 2021-03-25 06:45 | NUR ---
Patient in room [facility]ICH 348B. I have received report from SKY ARZOLA & SKY XIE and had the opportunity to ask questions and assume patient care.
[2021-03-25 07:00] VITALS: BP 99/47
[2021-03-25] MEDS ORDERED: fluconazole 100mg tablet PO SCH (08:00)
[2021-03-25] MEDS ORDERED: ascorbic acid 500mg tablet PO SCH (08:00)
[2021-03-25] MEDS ORDERED: multivitamins, therapeutics tablet PO SCH (08:00)
[2021-03-25] MEDS ORDERED: cholecalciferol (vitamin D3) 1,000 unit (25mcg) tablet PO SCH (08:00)
[2021-03-25] MEDS ORDERED: methylphenidate 5mg tablet PO SCH (08:00)
[2021-03-25] MEDS ORDERED: enoxaparin 40mg/0.4ml syringe SUBCUT SCH (08:00)
[2021-03-25] MEDS ORDERED: valacyclovir 500mg tablet PO SCH (08:00)
[2021-03-25] MEDS ORDERED: ESCITALOPRAM OXALATE 5 MG TABLET PO SCH (08:00)
[2021-03-25] MEDS: oxybutynin 5mg tablet PO SCH (08:59)
[2021-03-25] MEDS: nystatin 500,000 unit/5ML UD oral suspension PO SCH (09:00)
[2021-03-25 11:00] VITALS: BP 126/52
[2021-03-25] MEDS ORDERED: NYST1000 PO (11:06)
--- NOTE | 2021-03-25 12:31 | NUR ---
PATIENT STABLE AND APPROPRIATE FOR DISCHARGE, IV WAS NOT TAKEN OUT, FAMILY INFORMED FENCE LABORER WAS THERE WITH FAMILY TO TAKE OUT, NEW MEDS E-SCRIPTED TO PREFERRED PHARMACY, EDUCATION GIVEN, ALL BELONGINGS SENT WITH PATIENT, PATIENT TAKEN TO LOBBY BY WHEELCHAIR TO AN AWAITING CAR WHERE DAUGHTER WOULD TAKE PATIENT HOME
== END 2021-03-25 12:00 | disposition home or self-care (01) ==
LOC: ER 15:00 → ED HOLD 16:38 → SUR 3N 23:15
PROVIDERS: ADMIT Family Medicine; ATTEND Family Medicine
DX: R21 Rash and other nonspecific skin eruption (principal); F02.80 Dementia in other diseases classified elsewhere, unspecified severity, without behavioral disturbance, psychotic disturbance, mood disturbance, and anxiety; B48.8 Other specified mycoses; F42.9 Obsessive-compulsive disorder, unspecified; F41.9 Anxiety disorder, unspecified; Z95.1 Presence of aortocoronary bypass graft; Z79.899 Other long term (current) drug therapy
CPT/HCPCS: 36415; 80048; 80053; 81001; 85025; 85651; 86140; 87077; 87081; 87088; 87186; 96372; 99284; G0378; J7512; Q0163; J1650

== ENCOUNTER 2021-12-24 08:20 | Inpatient (IN) | payer MEDICARE, BC ==
[~2021-12-24] VITALS: Ht 165.1 cm; Wt 88.0 kg
[~2021-12-24 08:20] MED LIST changes: +MIRT-87 PO; -MIRT-92 PO
[2021-12-24] MEDS ORDERED: acetaminophen 325mg tablet PO STA (08:47)
[2021-12-24] MEDS ORDERED: CefTRIAXone 2gm/NS 100ml IVPB 100 ML IV ONE (08:50)
[2021-12-24] MEDS ORDERED: normal saline 1000ML IV soln IV ONE (08:50)
[2021-12-24] MEDS ORDERED: HYDROcodone/acetaminophen 10/325mg tab PO ONE (09:40)
[2021-12-24] MEDS ORDERED: ketorolac tromethamine 15mg/ml inj. IV ONE (09:40)
[2021-12-24] MEDS ORDERED: ondansetron/PF 4mg/2ml inj IV ONE (09:40)
[2021-12-24 09:47] LABS: BASOPHILS % (AUTO) 0.1 % (0-1); EOSINOPHILS % (AUTO) 0 % (0-6); HEMATOCRIT 35.1 % (35.0-45.0); HEMOGLOBIN 11.7 g/dl (12.0-16.0); LYMPHOCYTES # (AUTO) 0.5 X10'3 (1.1-4.8); LYMPHOCYTES % (AUTO) 2.4 % (21-51); MEAN CORPUSCULAR HEMOGLOBIN 32.6 PG (27.0-31.0); MEAN CORPUSCULAR HGB CONC 33.3 g/dL (33.0-36.5); MEAN CORPUSCULAR VOLUME 97.8 FL (78-98); MEAN PLATELET VOLUME 8.4 FL (7.4-10.4); MONOCYTES # (AUTO) 0.6 X10'3 (0-0.9); MONOCYTES % (AUTO) 2.5 % (2-12); NEUTROPHILS # (AUTO) 20.6 X10'3 (1.8-7.7); PLATELET COUNT 232 X10'3 (140-440); RED BLOOD COUNT 3.59 X10'6 (4.20-5.60); RED CELL DISTRIBUTION WIDTH 13.9 % (11.5-14.5); WHITE BLOOD COUNT 21.6 X10'3 (4.5-11.0)
[2021-12-24 10:03] LABS: ALANINE AMINOTRANSFERASE 15 U/L (12-78); ALBUMIN 3.5 G/DL (3.4-5.0); ALBUMIN/GLOBULIN RATIO 0.7 (1.1-1.5); ALKALINE PHOSPHATASE 110 IU/L (46-116); ANION GAP 12 (8-16); ASPARTATE AMINO TRANSFERASE 27 U/L (10-37); BILIRUBIN,TOTAL 0.7 MG/DL (0.1-1.0); BLOOD UREA NITROGEN 17 MG/DL (7-18); BUN/CREATININE RATIO 16.8 (6.6-38.0); CALCIUM 8.8 MG/DL (8.5-10.1); CHLORIDE 103 MMOL/L (99-107); CREATININE 1.01 MG/DL (0.40-0.90); GLUCOSE 94 MG/DL (70-104); MAGNESIUM 1.4 MG/DL (1.5-2.4); POTASSIUM 3.4 MMOL/L (3.5-5.1); SODIUM 139 MMOL/L (135-145); TOTAL CARBON DIOXIDE 23.9 MMOL/L (24-32); TOTAL PROTEIN 8.8 G/DL (6.4-8.2); eGFR 52 ML/MIN
[2021-12-24 10:16] LABS: CLARITY,URINE CLEAR (Clear); COLOR,URINE YELLOW (Yellow); GLUCOSE, URINE NEGATIVE (Neg); KETONES,URINE NEGATIVE (Neg); LEUKOCYTE ESTERASE ,URINE NEGATIVE (Neg); NITRITES, URINE NEGATIVE (Neg); OCCULT BLOOD,URINE TRACE-LYSED (Neg); PH,URINE 6.5 (4.8-8.0); PROTEIN,URINE NEGATIVE (Neg); UROBILINOGEN,URINE 0.2 E.U/dL (0.2-1.0)
[2021-12-24 10:25] LABS: UA COLLECTION TYPE STRAIGHT CATH
[2021-12-24 10:28] LABS: SQUAMOUS EPITHELIAL CELL,UR FEW /LPF (FEW)
[2021-12-24 10:29] LABS: BACTERIA,URINE FEW /HPF (Neg); WBC,URINE 0-4 /HPF (0-4)
[2021-12-24 10:41] LABS: PLATELET ESTIMATE NORMAL; TOTAL CELLS COUNTED 100
[2021-12-24] MEDS ORDERED: erythromycin ophthalmic ointment 1gm tube EACHEYE ONE (11:40)
[2021-12-24] MEDS ORDERED: magnesium 4gm in 100ml NS 100 ML IV PRN (12:25)
[2021-12-24] MEDS ORDERED: magnesium Cl slow-release 64mg tablet PO PRN (12:25)
[2021-12-24] MEDS ORDERED: potassium CL 10mEq/100ml bag 100 ML IV PRN (12:25)
[2021-12-24] MEDS ORDERED: POTASSIUM BICARB 20meq eff tab 20 MEQ TABLET.EFF PO PRN ×2 (12:25)
[2021-12-24] MEDS ORDERED: ondansetron/PF 4mg/2ml inj IV PRN (12:25)
[2021-12-24] MEDS ORDERED: magnesium 2GM in 50ml NS 50 ML IV PRN (12:25)
[2021-12-24] MEDS ORDERED: acetaminophen 650mg rectal suppository RC PRN (12:25)
[2021-12-24 13:12] LABS: MAGNESIUM 1.4 MG/DL (1.5-2.4); POTASSIUM 3.3 MMOL/L (3.5-5.1)
--- NOTE | 2021-12-24 13:20 | NUR ---
Called PCU to give report; RN unavailable, will call back in 10 minutes.
--- NOTE | 2021-12-24 13:39 | NUR ---
Report called to SKY Gutierrez in PCU.
[2021-12-24 14:00] VITALS: BP 113/49
[2021-12-24] MEDS: normal saline 1000ml 1,000 ML IV SCH (14:42)
[2021-12-24 15:55] VITALS: BP 146/62
[2021-12-24] MEDS: acetaminophen 325mg tablet PO PRN (16:03)
[2021-12-24 18:00] VITALS: BP 97/58
[2021-12-24] MEDS ORDERED: MONT-40 PO (18:13)
[2021-12-24] MEDS ORDERED: ALPR0.5T8 PO (18:13)
--- NOTE | 2021-12-24 18:57 | NUR ---
Patient in room PCU 3022. I have received report from Brenda SWANSON and had the opportunity to ask questions and assume patient care.
--- NOTE | 2021-12-24 18:58 | NUR ---
Patient in room PCU 3022. I have received report from kyle vieira and had the opportunity to ask questions and assume patient care.
[2021-12-24] MEDS: K and/or MAG REPLACEMENT MC SCH (20:03)
[2021-12-24 22:00] VITALS: BP 100/46
--- NOTE | 2021-12-24 23:45 | NUR ---
I have reviewed and agree with all interventions, assessments performed and documented by Preston GONZALEZ.
[2021-12-25] MEDS: ceFAZolin/D5W- 1GM premix 50 ML IV SCH ×3 (00:49→16:00)
--- NOTE | 2021-12-25 06:10 | NUR ---
Pt has critical H (6.3)&H(19.6) called into Dr. Price. Order for Type and Screen as well as 2 units of PRBC ordered. Addendum: 12/25/21 at 0655 by Isaura Almanza RN note on wrong pt
--- NOTE | 2021-12-25 06:30 | NUR ---
Patient in room PCU 3022. I have received report from Isaura SWANSON and had the opportunity to ask questions and assume patient care.
[2021-12-25 06:34] LABS: BASOPHILS % (AUTO) 0.1 % (0-1); EOSINOPHILS % (AUTO) 0 % (0-6); HEMATOCRIT 33.9 % (35.0-45.0); HEMOGLOBIN 11.1 g/dl (12.0-16.0); LYMPHOCYTES # (AUTO) 1.1 X10'3 (1.1-4.8); LYMPHOCYTES % (AUTO) 4.6 % (21-51); MEAN CORPUSCULAR HEMOGLOBIN 32.2 PG (27.0-31.0); MEAN CORPUSCULAR HGB CONC 32.8 g/dL (33.0-36.5); MEAN CORPUSCULAR VOLUME 98.1 FL (78-98); MEAN PLATELET VOLUME 8.7 FL (7.4-10.4); MONOCYTES # (AUTO) 0.6 X10'3 (0-0.9); MONOCYTES % (AUTO) 2.6 % (2-12); NEUTROPHILS # (AUTO) 21.9 X10'3 (1.8-7.7); NEUTROPHILS % (AUTO) 92.7 % (42-75); PLATELET COUNT 190 X10'3 (140-440); RED BLOOD COUNT 3.46 X10'6 (4.20-5.60); RED CELL DISTRIBUTION WIDTH 13.9 % (11.5-14.5); WHITE BLOOD COUNT 23.6 X10'3 (4.5-11.0)
[2021-12-25 06:47] LABS: ALBUMIN 2.8 G/DL (3.4-5.0); ANION GAP 9 (8-16); BLOOD UREA NITROGEN 21 MG/DL (7-18); BUN/CREATININE RATIO 18.8 (6.6-38.0); CALCIUM 8.3 MG/DL (8.5-10.1); CHLORIDE 104 MMOL/L (99-107); CREATININE 1.12 MG/DL (0.40-0.90); GLUCOSE 108 MG/DL (70-104); MAGNESIUM 2.8 MG/DL (1.5-2.4); POTASSIUM 3.8 MMOL/L (3.5-5.1); SODIUM 135 MMOL/L (135-145); TOTAL CARBON DIOXIDE 21.9 MMOL/L (24-32); eGFR 46 ML/MIN
--- NOTE | 2021-12-25 06:55 | NUR ---
Problems reprioritized. Patient report given, questions answered & plan of care reviewed with Brenda SWANSON.
--- NOTE | 2021-12-25 06:56 | NUR ---
Problems reprioritized. Patient report given, questions answered & plan of care reviewed with kyle vieira.
[2021-12-25 07:23] VITALS: BP 115/48
[2021-12-25] MEDS: K and/or MAG REPLACEMENT MC SCH ×2 (08:00→20:00)
--- NOTE | 2021-12-25 09:21 | NUR ---
Initial: Pt admitted w/ sepsis and RLE cellulitis per EMR. Currently on Puree/Heart Healthy diet w/ ~65% intake of first meal. Recommend BSS w/ REEL CART OPERATOR to determine most appropriate texture. Also recommend liberalizing to Regular diet given geriatric age. No BM yet this admit. Will continue to monitor PO trends and make recommendations as appropriate. Recs: 1. Liberalize to Regular diet; texture per REEL CART OPERATOR 2. Monitor need for ONS 3. Bowel care per rx 4. Scaled wts this admit Addendum: 12/25/21 at [address] Amended: Links added.
[2021-12-25 11:00] VITALS: BP 125/56
[2021-12-25 15:00] VITALS: BP 127/62
[2021-12-25 18:00] VITALS: BP 136/43
--- NOTE | 2021-12-25 18:00 | NUR ---
Patient in room PCU 3022. I have received report from dariel HERZOG and had the opportunity to ask questions and assume patient care.
[2021-12-25] MEDS: ofloxacin 0.33% 5ml ophthalmic drops EACHEYE SCH (20:00)
[2021-12-25] MEDS: furosemide 20 MG/2 ML vial IV SCH (20:42)
[2021-12-25] MEDS: oxybutynin 5mg tablet PO SCH (20:45)
[2021-12-25] MEDS: mirtazapine 15mg tablet PO SCH (20:45)
[2021-12-25] MEDS: donepezil 5mg tablet PO SCH (20:45)
[2021-12-25] MEDS: VANCOMYCIN 750MG IV in NS 250 ML IV SCH (20:52)
[2021-12-25 22:00] VITALS: BP 176/75
[2021-12-26] MEDS: ceFAZolin/D5W- 1GM premix 50 ML IV SCH ×3 (00:14→14:00)
[2021-12-26 02:00] VITALS: BP 140/62
[2021-12-26] MEDS: ofloxacin 0.33% 5ml ophthalmic drops EACHEYE SCH ×4 (02:00→21:24)
[2021-12-26 06:00] VITALS: BP 138/54
--- NOTE | 2021-12-26 06:15 | NUR ---
Problems reprioritized. Patient report given, questions answered & plan of care reviewed with dariel Trevizo.
[2021-12-26 07:00] LABS: BASOPHILS % (AUTO) 0.1 % (0-1); EOSINOPHILS # (AUTO) 0.1 X10'3 (0-0.9); EOSINOPHILS % (AUTO) 0.5 % (0-6); HEMATOCRIT 32.8 % (35.0-45.0); HEMOGLOBIN 10.6 g/dl (12.0-16.0); LYMPHOCYTES # (AUTO) 1.6 X10'3 (1.1-4.8); LYMPHOCYTES % (AUTO) 10.1 % (21-51); MEAN CORPUSCULAR HEMOGLOBIN 31.9 PG (27.0-31.0); MEAN CORPUSCULAR HGB CONC 32.5 g/dL (33.0-36.5); MEAN CORPUSCULAR VOLUME 98.3 FL (78-98); MEAN PLATELET VOLUME 8.8 FL (7.4-10.4); MONOCYTES # (AUTO) 0.9 X10'3 (0-0.9); MONOCYTES % (AUTO) 6.1 % (2-12); NEUTROPHILS # (AUTO) 12.8 X10'3 (1.8-7.7); NEUTROPHILS % (AUTO) 83.2 % (42-75); PLATELET COUNT 152 X10'3 (140-440); RED BLOOD COUNT 3.34 X10'6 (4.20-5.60); RED CELL DISTRIBUTION WIDTH 14.2 % (11.5-14.5); WHITE BLOOD COUNT 15.4 X10'3 (4.5-11.0)
[2021-12-26 07:36] LABS: ALBUMIN 2.5 G/DL (3.4-5.0); ANION GAP 9 (8-16); BLOOD UREA NITROGEN 24 MG/DL (7-18); BUN/CREATININE RATIO 23.1 (6.6-38.0); CALCIUM 8.2 MG/DL (8.5-10.1); CHLORIDE 104 MMOL/L (99-107); CREATININE 1.04 MG/DL (0.40-0.90); GLUCOSE 91 MG/DL (70-104); MAGNESIUM 1.9 MG/DL (1.5-2.4); POTASSIUM 3.4 MMOL/L (3.5-5.1); SODIUM 134 MMOL/L (135-145); TOTAL CARBON DIOXIDE 21.3 MMOL/L (24-32); eGFR 50 ML/MIN
[2021-12-26] MEDS: K and/or MAG REPLACEMENT MC SCH ×2 (08:00→20:00)
[2021-12-26] MEDS: ESCITALOPRAM OXALATE 5 MG TABLET PO SCH (09:06)
[2021-12-26] MEDS: ALPRAZolam 0.5mg tablet PO SCH (09:07)
[2021-12-26] MEDS: oxybutynin 5mg tablet PO SCH ×2 (09:07→21:19)
[2021-12-26] MEDS: montelukast 10mg tablet PO SCH (09:07)
[2021-12-26] MEDS: furosemide 20 MG/2 ML vial IV SCH ×2 (09:08→21:25)
[2021-12-26] MEDS: methylphenidate 5mg tablet PO SCH (09:12)
[2021-12-26 11:00] VITALS: BP 122/56
[2021-12-26] MEDS: normal saline 1000ml 1,000 ML IV SCH ×2 (12:25→17:22)
[2021-12-26 15:00] VITALS: BP 116/54
[2021-12-26] MEDS: VANCOMYCIN 750MG IV in NS 250 ML IV SCH ×2 (16:00→19:30)
[2021-12-26 18:00] VITALS: BP 130/49
--- NOTE | 2021-12-26 18:20 | NUR ---
Problems reprioritized. Patient report given, questions answered & plan of care reviewed with NOC RN
--- NOTE | 2021-12-26 18:22 | NUR ---
Patient in room PCU 3022. I have received report from SKY Gutierrez and had the opportunity to ask questions and assume patient care.
--- NOTE | 2021-12-26 19:00 | NUR ---
Patient in room PCU 3022. I have received report from kyle vieira and had the opportunity to ask questions and assume patient care.
[2021-12-26] MEDS: mirtazapine 15mg tablet PO SCH (21:17)
[2021-12-26] MEDS: donepezil 5mg tablet PO SCH (21:17)
[2021-12-26] MEDS: acetaminophen 325mg/10.15ml oral unit dose solution PO PRN (21:21)
--- NOTE | 2021-12-26 21:30 | NUR ---
Patient adamantly refused for me to wash her eyes, and apply eye drops. Will try again the next time they are due.
[2021-12-26 22:00] VITALS: BP 95/42
--- NOTE | 2021-12-26 23:06 | NUR ---
I agree with Frieda [facility] ADN assessments, med pass and documentation.
[2021-12-27] MEDS: ceFAZolin/D5W- 1GM premix 50 ML IV SCH ×3 (01:06→17:09)
[2021-12-27 02:00] VITALS: BP 98/41
[2021-12-27] MEDS: ofloxacin 0.33% 5ml ophthalmic drops EACHEYE SCH ×4 (02:00→20:34)
--- NOTE | 2021-12-27 06:15 | NUR ---
Patient in room PCU 3022. I have received report from NOC RN and had the opportunity to ask questions and assume patient care.
--- NOTE | 2021-12-27 06:24 | NUR ---
Problems reprioritized. Patient report given, questions answered & plan of care reviewed with kyle vieira.
--- NOTE | 2021-12-27 06:26 | NUR ---
Gave report to SKY Gutierrez
[2021-12-27 07:54] VITALS: BP 123/63
[2021-12-27] MEDS: K and/or MAG REPLACEMENT MC SCH ×2 (08:00→20:00)
--- NOTE | 2021-12-27 08:27 | NUR ---
Initial: Pt seen by WASHHOUSE HAND and recommended to continue on Puree diet, needs feeder. Has consumed avg 45% x 7 meals partially meeting needs. Will recommend Ensure Enlive once daily and smoothie WL. No further mention of sepsis in MD notes. [facility] 12/25. Will continue to monitor and make recommendations as appropriate. Recs: 1. Continue Puree diet per WASHHOUSE HAND recs; liberalize to Regular 2. Ensure Enlive WB; pending MD verification 3. Smoothie WL 4. Bowel care per rx 5. Scaled wts 3. Bowel care per rx 4. Scaled wts this admit Addendum: 12/27/21 at [address] Amended: Links added.
[2021-12-27] MEDS: methylphenidate 5mg tablet PO SCH (09:00)
[2021-12-27] MEDS: ALPRAZolam 0.5mg tablet PO SCH (09:00)
[2021-12-27] MEDS: montelukast 10mg tablet PO SCH (09:00)
[2021-12-27] MEDS: oxybutynin 5mg tablet PO SCH ×2 (09:00→20:35)
[2021-12-27] MEDS: ESCITALOPRAM OXALATE 5 MG TABLET PO SCH (09:01)
[2021-12-27] MEDS: furosemide 20 MG/2 ML vial IV SCH (09:02)
[2021-12-27 11:00] VITALS: BP 105/44
[2021-12-27 15:00] VITALS: BP 122/45
[2021-12-27] MEDS: normal saline 1000ml 1,000 ML IV SCH ×2 (17:10→18:40)
[2021-12-27 18:00] VITALS: BP 127/48
--- NOTE | 2021-12-27 18:30 | NUR ---
Patient in room PCU 3022. I have received report from kyle and had the opportunity to ask questions and assume patient care.
--- NOTE | 2021-12-27 18:30 | NUR ---
Patient in room U 3022. I have received report from SKY HERZOG and had the opportunity to ask questions and assume patient care WITH CARLOS APONTE. Addendum: 12/28/21 at 0328 by Seng Knox RN Amended: Links added.
[2021-12-27] MEDS: donepezil 5mg tablet PO SCH (20:33)
[2021-12-27] MEDS: acetaminophen 325mg tablet PO PRN (20:34)
[2021-12-27] MEDS: mirtazapine 15mg tablet PO SCH (20:34)
[2021-12-27 22:00] VITALS: BP 99/48
--- NOTE | 2021-12-27 22:00 | NUR ---
bed bath given pt refused hair wash, refused to wash eyes and remove dentures. pt did rinse mouth with mouthwash twice, mouth lips chapped, sl red, lip moisturizer applied. sean care bath and lotion applied to skin, left breast sl reddened, left side of pannus sl red, bilat groin bright red excoriated down thighs, buttocks and gluteal fold. washed dried and calazime barrier cream applied, pillow cloth between thighs to prevent moisture, pt clenches thighs together. poc with pillows, rle reddened, edematous, lotion applied, elevated on pillows. pt has difficulty turning, pushes back and states "I'm falling: pt reassured she will not fall x2 assist to turn and reposition with pillows. refuses to remove glasses at this time. pt states she is comfortable and ready for bed. Addendum: 12/27/21 at 2226 by Seng Knox RN Amended: Links added.
[2021-12-28] VITALS (7 sets, daily range): BP systolic 89–114; BP diastolic 34–54
[2021-12-28] MEDS: ceFAZolin/D5W- 1GM premix 50 ML IV SCH ×3 (00:34→16:44)
[2021-12-28] MEDS: ofloxacin 0.33% 5ml ophthalmic drops EACHEYE SCH ×4 (02:00→20:17)
--- NOTE | 2021-12-28 03:38 | NUR ---
I have reviewed and agree with all interventions, assessments performed and documented by CARLOS APONTE. Addendum: 12/28/21 at 0339 by Seng Knox RN Amended: Links added.
--- NOTE | 2021-12-28 04:00 | NUR ---
PT DENTURES REMOVED, GUMS SL REDDENED, DENTURES BRUSHED AND SOAKING, ORAL CARE GIVEN, MOUTH GENTLY SWABBED WITH MOUTHWASH. MOISTURIZER TO LIPS AND MOUTH. BILAT THIGHS WITH INTERDRY IN PLACE. PT REFUSING TO TAKE GLASSES OFF. Addendum: 12/28/21 at 0530 by Seng Knox RN Amended: Links added.
--- NOTE | 2021-12-28 06:21 | NUR ---
Problems reprioritized. Patient report given, questions answered & plan of care reviewed with
[2021-12-28] MEDS: lactose-reduced food (Ensure Enlive) - 237ml bottle PO SCH (07:30)
[2021-12-28] MEDS: K and/or MAG REPLACEMENT MC SCH ×2 (08:00→20:00)
[2021-12-28] MEDS ORDERED: LIDOcaine 2% 10ml TOPICAL JELLY (Urojet) TP ONE ×2 (09:05→10:40)
[2021-12-28] MEDS: methylphenidate 5mg tablet PO SCH (09:35)
[2021-12-28] MEDS: oxybutynin 5mg tablet PO SCH ×2 (09:35→20:13)
[2021-12-28] MEDS: montelukast 10mg tablet PO SCH (09:36)
[2021-12-28] MEDS: ALPRAZolam 0.5mg tablet PO SCH (09:44)
[2021-12-28] MEDS: ESCITALOPRAM OXALATE 5 MG TABLET PO SCH (09:44)
[2021-12-28 09:47] LABS: ALBUMIN 2.4 G/DL (3.4-5.0); BLOOD UREA NITROGEN 29 MG/DL (7-18); BUN/CREATININE RATIO 29.9 (6.6-38.0); CALCIUM 8.1 MG/DL (8.5-10.1); CHLORIDE 105 MMOL/L (99-107); CREATININE 0.97 MG/DL (0.40-0.90); GLUCOSE 98 MG/DL (70-104); MAGNESIUM 1.7 MG/DL (1.5-2.4); POTASSIUM 3.9 MMOL/L (3.5-5.1); SODIUM 139 MMOL/L (135-145); eGFR 54 ML/MIN
[2021-12-28 09:50] LABS: ANION GAP 10 (8-16); BASOPHILS % (AUTO) 0.2 % (0-1); EOSINOPHILS # (AUTO) 0.4 X10'3 (0-0.9); EOSINOPHILS % (AUTO) 2.9 % (0-6); HEMATOCRIT 32.3 % (35.0-45.0); HEMOGLOBIN 10.7 g/dl (12.0-16.0); LYMPHOCYTES # (AUTO) 1.7 X10'3 (1.1-4.8); MEAN CORPUSCULAR HEMOGLOBIN 32.1 PG (27.0-31.0); MEAN CORPUSCULAR VOLUME 97.2 FL (78-98); MEAN PLATELET VOLUME 8.7 FL (7.4-10.4); MONOCYTES # (AUTO) 1.3 X10'3 (0-0.9); MONOCYTES % (AUTO) 9.3 % (2-12); NEUTROPHILS % (AUTO) 74.6 % (42-75); PLATELET COUNT 217 X10'3 (140-440); RED BLOOD COUNT 3.33 X10'6 (4.20-5.60); RED CELL DISTRIBUTION WIDTH 13.9 % (11.5-14.5); WHITE BLOOD COUNT 13.4 X10'3 (4.5-11.0)
[2021-12-28] MEDS ORDERED: VANCOMYCIN LEVEL IV ONE (15:30)
--- NOTE | 2021-12-28 18:42 | NUR ---
Patient in room U 3022. I have received report from SKY HERZOG and had the opportunity to ask questions and assume patient care. Addendum: 12/28/21 at 1842 by Jewels Roy RN Amended: Links added.
[2021-12-28] MEDS: donepezil 5mg tablet PO SCH (20:13)
[2021-12-28] MEDS: mirtazapine 15mg tablet PO SCH (20:14)
[2021-12-28] MEDS: ALPRAZolam 0.25mg tablet PO SCH (20:16)
[2021-12-28] MEDS: acetaminophen 325mg/10.15ml oral unit dose solution PO PRN (20:23)
[2021-12-29] MEDS: normal saline 1000ml 1,000 ML IV SCH ×3 (00:16→20:05)
[2021-12-29] MEDS: ceFAZolin/D5W- 1GM premix 50 ML IV SCH ×4 (00:18→23:56)
[2021-12-29 02:00] VITALS: BP 86/52
[2021-12-29] MEDS: ofloxacin 0.33% 5ml ophthalmic drops EACHEYE SCH ×4 (02:00→20:00)
[2021-12-29 06:00] VITALS: BP 112/39
--- NOTE | 2021-12-29 06:18 | NUR ---
Patient in room PCU 3022. I have received report from Jewels SWANSON and had the opportunity to ask questions and assume patient care.
--- NOTE | 2021-12-29 06:19 | NUR ---
Problems reprioritized. Patient report given, questions answered & plan of care reviewed with cristian steinberg rn. Addendum: 12/29/21 at 0619 by Jewels Roy RN Amended: Links added.
[2021-12-29] MEDS: methylphenidate 5mg tablet PO SCH (08:00)
[2021-12-29] MEDS: K and/or MAG REPLACEMENT MC SCH ×2 (08:00→20:00)
[2021-12-29] MEDS: lactose-reduced food (Ensure Enlive) - 237ml bottle PO SCH (08:39)
[2021-12-29] MEDS: ESCITALOPRAM OXALATE 5 MG TABLET PO SCH (08:40)
[2021-12-29] MEDS: ALPRAZolam 0.5mg tablet PO SCH (08:41)
[2021-12-29] MEDS: montelukast 10mg tablet PO SCH (08:41)
[2021-12-29] MEDS: oxybutynin 5mg tablet PO SCH ×2 (08:42→20:07)
[2021-12-29 11:00] VITALS: BP 100/71
[2021-12-29 18:00] VITALS: BP 143/50
--- NOTE | 2021-12-29 18:39 | NUR ---
Patient in room U 3022. I have received report from SKY BALDWIN and had the opportunity to ask questions and assume patient care. Addendum: 12/29/21 at 1840 by Jewels Roy RN Amended: Links added.
--- NOTE | 2021-12-29 20:00 | NUR ---
pt fed sitting up in chair ate 2% of each item. mouth care given mouth red sore excoriated and cream applied to them after meds and food done. pt c/o pain medicated with po tylenol for it. bed changed and complete bath done and Calazime cream to red areas under breasts, groin and right lower leg and perinea. took 3 people and steady lift to get pt back into bed super weak and tolerated fair. pt super exhausted. skin care done to bottom was weepy and barrier Calazime cream mix applied to it and back of the thighs where red. pt positioned on her side for comfort. pt happy to be back in bed and pleasant. right leg elevated up on pillow and lorenz care done as well and hair care.
[2021-12-29] MEDS: acetaminophen 325mg/10.15ml oral unit dose solution PO PRN (20:05)
[2021-12-29] MEDS: ALPRAZolam 0.25mg tablet PO SCH (20:07)
[2021-12-29] MEDS: mirtazapine 15mg tablet PO SCH (20:08)
[2021-12-29] MEDS: donepezil 5mg tablet PO SCH (20:08)
[2021-12-29 22:00] VITALS: BP 95/45
[2021-12-30] MEDS: ofloxacin 0.33% 5ml ophthalmic drops EACHEYE SCH ×4 (01:38→19:57)
[2021-12-30 02:00] VITALS: BP 95/44
[2021-12-30 06:00] VITALS: BP 97/42
--- NOTE | 2021-12-30 06:52 | NUR ---
Patient in room PCU 3022. I have received report from Jewels SWANSON and had the opportunity to ask questions and assume patient care.
--- NOTE | 2021-12-30 06:54 | NUR ---
Problems reprioritized. Patient report given, questions answered & plan of care reviewed with SKY BALDWIN. Addendum: 12/30/21 at 0655 by Jewels Roy RN Amended: Links added.
[2021-12-30] MEDS: valacyclovir 500mg tablet PO SCH (08:00)
[2021-12-30] MEDS: normal saline 1000ml 1,000 ML IV SCH ×2 (08:20→23:50)
[2021-12-30] MEDS: lactose-reduced food (Ensure Enlive) - 237ml bottle PO SCH (08:44)
[2021-12-30] MEDS: ALPRAZolam 0.5mg tablet PO SCH (08:47)
[2021-12-30] MEDS: montelukast 10mg tablet PO SCH (08:48)
[2021-12-30] MEDS: ESCITALOPRAM OXALATE 5 MG TABLET PO SCH (08:48)
[2021-12-30] MEDS: oxybutynin 5mg tablet PO SCH ×2 (08:48→19:58)
[2021-12-30] MEDS: ceFAZolin/D5W- 1GM premix 50 ML IV SCH ×3 (08:56→23:51)
[2021-12-30] MEDS: methylphenidate 5mg tablet PO SCH (08:56)
--- NOTE | 2021-12-30 09:37 | NUR ---
Reassessment: Pt continues on Puree diet w/ low PO intake, mostly 25% of meals and 25% of 1 documented ONS, overall partially meeting needs. Per nursing notes, pt's mouth is red and excoriated, which may be affecting PO intake. If PO does not improve, consider supplemental NGTF if within POC. LBM 5/3, recommend routine bowel care if MD agreeable. Will continue to monitor. Recs: 1. Continue Puree diet per ELECTROCARDIOGRAM TECHNICIAN recs; liberalize to Regular 2. Ensure Enlive WB 3. Smoothie WL 4. Routine bowel care 5. Scaled wts 6. IF PO does not improve, consider TF if within POC Addendum: 12/30/21 at [address] Amended: Links added.
[2021-12-30 10:13] LABS: BASOPHILS % (AUTO) 0.3 % (0-1); EOSINOPHILS # (AUTO) 0.4 X10'3 (0-0.9); EOSINOPHILS % (AUTO) 3.6 % (0-6); HEMATOCRIT 32.1 % (35.0-45.0); HEMOGLOBIN 10.4 g/dl (12.0-16.0); LYMPHOCYTES # (AUTO) 2.1 X10'3 (1.1-4.8); LYMPHOCYTES % (AUTO) 17.7 % (21-51); MEAN CORPUSCULAR HGB CONC 32.6 g/dL (33.0-36.5); MEAN CORPUSCULAR VOLUME 98.3 FL (78-98); MEAN PLATELET VOLUME 8.4 FL (7.4-10.4); MONOCYTES % (AUTO) 8.1 % (2-12); NEUTROPHILS # (AUTO) 8.3 X10'3 (1.8-7.7); NEUTROPHILS % (AUTO) 70.3 % (42-75); PLATELET COUNT 247 X10'3 (140-440); RED BLOOD COUNT 3.26 X10'6 (4.20-5.60); RED CELL DISTRIBUTION WIDTH 14.2 % (11.5-14.5); WHITE BLOOD COUNT 11.8 X10'3 (4.5-11.0)
[2021-12-30 10:40] LABS: ALANINE AMINOTRANSFERASE 7 U/L (12-78); ALBUMIN 2.3 G/DL (3.4-5.0); ALBUMIN/GLOBULIN RATIO 0.5 (1.1-1.5); ALKALINE PHOSPHATASE 105 IU/L (46-116); ANION GAP 11 (8-16); ASPARTATE AMINO TRANSFERASE 27 U/L (10-37); BILIRUBIN,TOTAL 0.3 MG/DL (0.1-1.0); BLOOD UREA NITROGEN 23 MG/DL (7-18); BUN/CREATININE RATIO 26.1 (6.6-38.0); CALCIUM 8.2 MG/DL (8.5-10.1); CHLORIDE 105 MMOL/L (99-107); CREATININE 0.88 MG/DL (0.40-0.90); GLUCOSE 92 MG/DL (70-104); POTASSIUM 3.9 MMOL/L (3.5-5.1); SODIUM 139 MMOL/L (135-145); TOTAL CARBON DIOXIDE 22.6 MMOL/L (24-32); TOTAL PROTEIN 7.2 G/DL (6.4-8.2); eGFR 61 ML/MIN
[2021-12-30] MEDS: K and/or MAG REPLACEMENT MC SCH ×2 (10:52→20:00)
[2021-12-30 11:00] VITALS: BP 109/35
[2021-12-30] MEDS ORDERED: acyclovir 5% ointment 5gm TP SCH (12:00)
--- NOTE | 2021-12-30 12:10 | NUR ---
Too Nuclear Medicine for stress test. Addendum: 12/30/21 at 1306 by Evita Diego RN Disregard above note Wrong Patient
[2021-12-30 15:00] VITALS: BP 142/62
[2021-12-30] MEDS: DOCOSANOL 2 GM CREAM..G. TP SCH ×3 (15:00→21:00)
[2021-12-30 18:00] VITALS: BP 143/53
--- NOTE | 2021-12-30 18:31 | NUR ---
Problems reprioritized. Patient report given, questions answered & plan of care reviewed with Jewels SWANSON.
--- NOTE | 2021-12-30 18:38 | NUR ---
Patient in room U 3022. I have received report from SKY BALDWIN and had the opportunity to ask questions and assume patient care. Addendum: 12/30/21 at 1838 by Jewels Roy RN Amended: Links added.
[2021-12-30] MEDS: ALPRAZolam 0.25mg tablet PO SCH (19:56)
[2021-12-30] MEDS: acetaminophen 325mg tablet PO PRN (19:56)
[2021-12-30] MEDS: donepezil 5mg tablet PO SCH (19:56)
[2021-12-30] MEDS: mirtazapine 15mg tablet PO SCH (19:57)
[2021-12-30] MEDS: terbinafine cream 30gm TP SCH (20:14)
--- NOTE | 2021-12-30 21:00 | NUR ---
hair wash bath done and creams applied to under breast, perinea, bottom, back of thighs&front and to right lower leg. lotrim to areas appearing yeasty. lorenz cath care done and cream to lips. mouth care done. pt insistent she wear her glasses after eye drops given and while in bed. pt fearful of loosing them, her teeth and falling while turning in bed. pt needs frequent reassurance she is safe here.
[2021-12-30 22:00] VITALS: BP 85/31
[2021-12-31 02:00] VITALS: BP 128/48
[2021-12-31] MEDS: ofloxacin 0.33% 5ml ophthalmic drops EACHEYE SCH ×3 (02:56→14:00)
--- NOTE | 2021-12-31 03:00 | NUR ---
pt bottom weeping and lorenz tube kinked undid it and skin care done and pads under her changed. pt tolerated well. repositioned up in bed as well.
--- NOTE | 2021-12-31 05:07 | NUR ---
pt resting with sheets over her head now, no complaints or s&s of distress.
[2021-12-31] MEDS: DOCOSANOL 2 GM CREAM..G. TP SCH ×4 (06:00→15:37)
--- NOTE | 2021-12-31 06:22 | NUR ---
Problems reprioritized. Patient report given, questions answered & plan of care reviewed with SKY ZEPEDA. Addendum: 12/31/21 at 0623 by Jewels Roy RN Amended: Links added.
--- NOTE | 2021-12-31 06:34 | NUR ---
Patient in room PCU 3022. I have received report from ADRIANA SWANSON and had the opportunity to ask questions and assume patient care.
[2021-12-31 06:49] VITALS: BP_SYST 123; BP_SYST 152; BP_DIAS 50; BP_DIAS 82
[2021-12-31] MEDS: ceFAZolin/D5W- 1GM premix 50 ML IV SCH (07:47)
[2021-12-31] MEDS: ALPRAZolam 0.5mg tablet PO SCH (07:47)
[2021-12-31] MEDS: methylphenidate 5mg tablet PO SCH (07:47)
[2021-12-31] MEDS: montelukast 10mg tablet PO SCH (07:47)
[2021-12-31] MEDS: valacyclovir 500mg tablet PO SCH (07:48)
[2021-12-31] MEDS: ESCITALOPRAM OXALATE 5 MG TABLET PO SCH (07:48)
[2021-12-31] MEDS: lactose-reduced food (Ensure Enlive) - 237ml bottle PO SCH ×2 (07:49→08:06)
[2021-12-31] MEDS: terbinafine cream 30gm TP SCH (07:50)
[2021-12-31] MEDS: oxybutynin 5mg tablet PO SCH (07:51)
[2021-12-31] MEDS: K and/or MAG REPLACEMENT MC SCH (07:51)
[2021-12-31] MEDS ORDERED: fluconazole 100mg tablet PO SCH (08:00)
[2021-12-31] MEDS: normal saline 1000ml 1,000 ML IV SCH (09:20)
[2021-12-31 11:00] VITALS: BP 118/78
--- NOTE | 2021-12-31 14:47 | NUR ---
Report given to Tahir Ocasio on TCU
[2021-12-31 15:00] VITALS: BP 131/53
--- NOTE | 2021-12-31 16:20 | NUR ---
Patient picked up by EMS to transfer to [facility], PIV intact per request of [facility] staff. belongings sent with patient
== END 2021-12-31 16:23 | DRG 602 ==
LOC: ER 08:21 → EDBD 08:21 → PCU 3S 12:27
PROVIDERS: ADMIT Internal Medicine; ATTEND Internal Medicine
DX: L03.115 Cellulitis of right lower limb (principal); N17.0 Acute kidney failure with tubular necrosis; G93.41 Metabolic encephalopathy; E87.1 Hypo-osmolality and hyponatremia; F02.80 Dementia in other diseases classified elsewhere, unspecified severity, without behavioral disturbance, psychotic disturbance, mood disturbance, and anxiety; B00.1 Herpesviral vesicular dermatitis; K44.9 Diaphragmatic hernia without obstruction or gangrene; J44.9 Chronic obstructive pulmonary disease, unspecified; H10.33 Unspecified acute conjunctivitis, bilateral; B37.2 Candidiasis of skin and nail; E11.22 Type 2 diabetes mellitus with diabetic chronic kidney disease; E87.6 Hypokalemia; F41.1 Generalized anxiety disorder; G30.9 Alzheimer's disease, unspecified; F32.A Depression, unspecified; F41.9 Anxiety disorder, unspecified; G89.29 Other chronic pain; T36.8X5A Adverse effect of other systemic antibiotics, initial encounter; Y92.230 Patient room in hospital as the place of occurrence of the external cause; R32 Unspecified urinary incontinence; M54.9 Dorsalgia, unspecified; R19.7 Diarrhea, unspecified; I25.10 Atherosclerotic heart disease of native coronary artery without angina pectoris; L30.4 Erythema intertrigo; N18.9 Chronic kidney disease, unspecified; Z80.1 Family history of malignant neoplasm of trachea, bronchus and lung; Z81.8 Family history of other mental and behavioral disorders; Z82.0 Family history of epilepsy and other diseases of the nervous system; Z82.5 Family history of asthma and other chronic lower respiratory diseases; Z83.3 Family history of diabetes mellitus; Z95.1 Presence of aortocoronary bypass graft; Z87.440 Personal history of urinary (tract) infections; Z88.2 Allergy status to sulfonamides; Z90.49 Acquired absence of other specified parts of digestive tract; Z79.899 Other long term (current) drug therapy
CPT/HCPCS: 36415; 71045; 80048; 80053; 81001; 83605; 83735; 84132; 84145; 85007; 85025; 87040; 87081; 92508; 92616; 93005; 97110; 97116; 97161; 97530; 99285; G0378; J0690; J0696; J1940; J3370; J3475; J7030; J7050

== ENCOUNTER 2022-05-23 11:24 | Emergency (ER) | payer MEDICARE, BC ==
[~2022-05-23] VITALS: Ht 162.6 cm; Wt 79.2 kg
[~2022-05-23 11:24] MED LIST changes: +ALPR0.5T8 PO; +MONT-40 PO
[2022-05-23 13:05] VITALS: BP 132/69
[2022-05-23 15:01] LABS: BASOPHILS % (AUTO) 0.5 % (0-1); EOSINOPHILS # (AUTO) 0.4 X10'3 (0-0.9); EOSINOPHILS % (AUTO) 6.1 % (0-6); HEMATOCRIT 37.3 % (35.0-45.0); HEMOGLOBIN 12.5 g/dl (12.0-16.0); LYMPHOCYTES # (AUTO) 2.1 X10'3 (1.1-4.8); MEAN CORPUSCULAR HEMOGLOBIN 32.2 PG (27.0-31.0); MEAN CORPUSCULAR HGB CONC 33.5 g/dL (33.0-36.5); MEAN CORPUSCULAR VOLUME 96.3 FL (78-98); MEAN PLATELET VOLUME 8.8 FL (7.4-10.4); MONOCYTES # (AUTO) 0.6 X10'3 (0-0.9); MONOCYTES % (AUTO) 8.7 % (2-12); NEUTROPHILS # (AUTO) 3.4 X10'3 (1.8-7.7); NEUTROPHILS % (AUTO) 52.7 % (42-75); PLATELET COUNT 191 X10'3 (140-440); RED BLOOD COUNT 3.88 X10'6 (4.20-5.60); RED CELL DISTRIBUTION WIDTH 14.7 % (11.5-14.5); WHITE BLOOD COUNT 6.4 X10'3 (4.5-11.0)
[2022-05-23 15:15] LABS: ALANINE AMINOTRANSFERASE 15 U/L (12-78); ALBUMIN 3.6 G/DL (3.4-5.0); ALBUMIN/GLOBULIN RATIO 0.7 (1.1-1.5); ALKALINE PHOSPHATASE 100 IU/L (46-116); ANION GAP 9 (8-16); ASPARTATE AMINO TRANSFERASE 27 U/L (10-37); BILIRUBIN,TOTAL 0.3 MG/DL (0.1-1.0); BLOOD UREA NITROGEN 13 MG/DL (7-18); BUN/CREATININE RATIO 15.5 (6.6-38.0); CALCIUM 8.7 MG/DL (8.5-10.1); CHLORIDE 104 MMOL/L (99-107); CREATININE 0.84 MG/DL (0.40-0.90); GLUCOSE 87 MG/DL (70-104); POTASSIUM 4.2 MMOL/L (3.5-5.1); SODIUM 137 MMOL/L (135-145); TOTAL CARBON DIOXIDE 24.4 MMOL/L (24-32); TOTAL PROTEIN 8.8 G/DL (6.4-8.2); eGFR 64 ML/MIN
[2022-05-23 16:17] LABS: CLARITY,URINE CLOUDY (Clear); COLOR,URINE YELLOW (Yellow); GLUCOSE, URINE NEGATIVE (Neg); KETONES,URINE NEGATIVE (Neg); LEUKOCYTE ESTERASE ,URINE LARGE (Neg); NITRITES, URINE POSITIVE (Neg); OCCULT BLOOD,URINE TRACE-INTACT (Neg); PROTEIN,URINE NEGATIVE (Neg); UROBILINOGEN,URINE 0.2 E.U/dL (0.2-1.0)
[2022-05-23 16:22] LABS: UA COLLECTION TYPE URINAL
[2022-05-23 16:23] LABS: BACTERIA,URINE 2+ /HPF (Neg); RBC,URINE 0-2 /HPF (0-2); SQUAMOUS EPITHELIAL CELL,UR FEW /LPF (FEW); WBC CLUMPS,URINE MANY /HPF (NEGATIVE); WBC,URINE TNTC /HPF (0-4)
[2022-05-23] MEDS: cephalexin 250mg capsule PO ONE (16:32)
[2022-05-23] MEDS ORDERED: CEPH500C2 PO (16:33)
[2022-05-23 16:37] LABS: URINE AMPHETAMINE SCREEN NEGATIVE (Neg); URINE BARBITUATE SCREEN NEGATIVE (Neg); URINE BENZODIAZEPINES SCREEN POSITIVE (Neg); URINE CANNABINOID SCREEN NEGATIVE (Neg); URINE COCAINE SCREEN NEGATIVE (Neg); URINE METHADONE SCREEN NEGATIVE (Neg); URINE OPIATE SCREEN NEGATIVE (Neg); URINE PHENCYCLIDINE SCREEN NEGATIVE (Neg)
== END 2022-05-23 18:36 | disposition home or self-care (01) ==
LOC: ER 11:24
DX: N39.0 Urinary tract infection, site not specified (principal); H10.32 Unspecified acute conjunctivitis, left eye; G89.29 Other chronic pain; M54.9 Dorsalgia, unspecified; F41.9 Anxiety disorder, unspecified; Z90.49 Acquired absence of other specified parts of digestive tract; Z88.2 Allergy status to sulfonamides; Z79.899 Other long term (current) drug therapy; Z79.1 Long term (current) use of non-steroidal anti-inflammatories (NSAID)
CPT/HCPCS: 36415; 80053; 80305; 81001; 85025; 87077; 87088; 87186; 99284

== ENCOUNTER 2022-08-04 12:50 | Emergency (ER) | payer MEDICARE, BC ==
[~2022-08-04] VITALS: Ht 160 cm; Wt 65.0 kg
[2022-08-04] MEDS ORDERED: normal saline 1000ml 1,000 ML IV ONE (15:25)
[2022-08-04] MEDS ORDERED: normal saline 1000ML IV soln IVB ONE (15:25)
[2022-08-04] MEDS ORDERED: LORazepam 1 MG tablet PO ONE (15:45)
[2022-08-04] MEDS ORDERED: OLANZapine 5mg rapidly disint. tablet PO ONE (15:45)
[2022-08-04] MEDS ORDERED: LORazepam 2 mg/ml vial IM ONE (15:50)
[2022-08-04] MEDS ORDERED: OLANZapine **IM** 10 mg inj. IM ONE (15:50)
[2022-08-04 16:06] LABS: BASOPHILS # (AUTO) 0.1 X10'3 (0-0.2); BASOPHILS % (AUTO) 0.6 % (0-1); EOSINOPHILS # (AUTO) 0.2 X10'3 (0-0.9); EOSINOPHILS % (AUTO) 1.7 % (0-6); HEMATOCRIT 31.1 % (35.0-45.0); HEMOGLOBIN 10.4 g/dl (12.0-16.0); LYMPHOCYTES # (AUTO) 1.5 X10'3 (1.1-4.8); LYMPHOCYTES % (AUTO) 15.1 % (21-51); MEAN CORPUSCULAR HEMOGLOBIN 32.6 PG (27.0-31.0); MEAN CORPUSCULAR HGB CONC 33.5 g/dL (33.0-36.5); MEAN CORPUSCULAR VOLUME 97.2 FL (78-98); MEAN PLATELET VOLUME 8.3 FL (7.4-10.4); MONOCYTES # (AUTO) 0.8 X10'3 (0-0.9); MONOCYTES % (AUTO) 8.1 % (2-12); NEUTROPHILS # (AUTO) 7.5 X10'3 (1.8-7.7); NEUTROPHILS % (AUTO) 74.5 % (42-75); PLATELET COUNT 272 X10'3 (140-440)
[2022-08-04 16:24] LABS: CLARITY,URINE CLEAR (Clear); COLOR,URINE YELLOW (Yellow); GLUCOSE, URINE NEGATIVE (Neg); KETONES,URINE TRACE mg/dl (Neg); LEUKOCYTE ESTERASE ,URINE NEGATIVE (Neg); NITRITES, URINE NEGATIVE (Neg); OCCULT BLOOD,URINE NEGATIVE (Neg); PROTEIN,URINE NEGATIVE (Neg); UROBILINOGEN,URINE 0.2 E.U/dL (0.2-1.0)
[2022-08-04 16:24] LABS: ALANINE AMINOTRANSFERASE 24 U/L (12-78); ALBUMIN 2.3 G/DL (3.4-5.0); ALBUMIN/GLOBULIN RATIO 0.4 (1.1-1.5); ALKALINE PHOSPHATASE 93 IU/L (46-116); ANION GAP 6 (8-16); ASPARTATE AMINO TRANSFERASE 54 U/L (10-37); BILIRUBIN,TOTAL 0.5 MG/DL (0.1-1.0); BLOOD UREA NITROGEN 18 MG/DL (7-18); BUN/CREATININE RATIO 19.8 (6.6-38.0); CALCIUM 8.5 MG/DL (8.5-10.1); CHLORIDE 106 MMOL/L (99-107); CREATININE 0.91 MG/DL (0.40-0.90); GLUCOSE 102 MG/DL (70-104); LIPASE 97 U/L (73-393); MAGNESIUM 1.6 MG/DL (1.5-2.4); POTASSIUM 3.7 MMOL/L (3.5-5.1); SODIUM 138 MMOL/L (135-145); TOTAL PROTEIN 7.8 G/DL (6.4-8.2); eGFR 58 ML/MIN
[2022-08-04 16:29] LABS: UA COLLECTION TYPE STRAIGHT CATH
[2022-08-04 18:07] VITALS: BP 125/53
== END 2022-08-04 20:30 | disposition home or self-care (01) ==
LOC: ER 12:50
DX: F30.9 Manic episode, unspecified (principal); R50.9 Fever, unspecified; R05.9 Cough, unspecified; G89.29 Other chronic pain; F41.9 Anxiety disorder, unspecified; Z87.440 Personal history of urinary (tract) infections; Z90.49 Acquired absence of other specified parts of digestive tract; Z98.890 Other specified postprocedural states; Z88.2 Allergy status to sulfonamides; Z79.899 Other long term (current) drug therapy
CPT/HCPCS: 36415; 71045; 80053; 81003; 83605; 83690; 83735; 85025; 87040; 87186; 93005; 96360; 96361; 96372; 99285; J2060; J3490; J7030; J7050; A4353

== ENCOUNTER 2022-10-05 19:15 | Emergency (ER) | payer MEDICARE, BC ==
[~2022-10-05] VITALS: Ht 165.1 cm; Wt 63.6 kg
[2022-10-05 20:56] LABS: BASOPHILS % (AUTO) 0.2 % (0-1); EOSINOPHILS # (AUTO) 0.2 X10'3 (0-0.9); EOSINOPHILS % (AUTO) 2.9 % (0-6); HEMATOCRIT 32.9 % (35.0-45.0); HEMOGLOBIN 10.8 g/dl (12.0-16.0); LYMPHOCYTES # (AUTO) 1.2 X10'3 (1.1-4.8); LYMPHOCYTES % (AUTO) 16.2 % (21-51); MEAN CORPUSCULAR HEMOGLOBIN 32.5 PG (27.0-31.0); MEAN CORPUSCULAR HGB CONC 32.9 g/dL (33.0-36.5); MEAN CORPUSCULAR VOLUME 98.8 FL (78-98); MEAN PLATELET VOLUME 9.5 FL (7.4-10.4); MONOCYTES # (AUTO) 0.8 X10'3 (0-0.9); MONOCYTES % (AUTO) 10.1 % (2-12); NEUTROPHILS # (AUTO) 5.3 X10'3 (1.8-7.7); NEUTROPHILS % (AUTO) 70.6 % (42-75); PLATELET COUNT 169 X10'3 (140-440); RED BLOOD COUNT 3.33 X10'6 (4.20-5.60); RED CELL DISTRIBUTION WIDTH 16.4 % (11.5-14.5); WHITE BLOOD COUNT 7.5 X10'3 (4.5-11.0)
[2022-10-05 21:09] LABS: ALANINE AMINOTRANSFERASE 26 U/L (12-78); ALBUMIN 3.2 G/DL (3.4-5.0); ALBUMIN/GLOBULIN RATIO 0.7 (1.1-1.5); ALKALINE PHOSPHATASE 130 IU/L (46-116); ANION GAP 7 (8-16); ASPARTATE AMINO TRANSFERASE 35 U/L (10-37); BILIRUBIN,TOTAL 0.2 MG/DL (0.1-1.0); BLOOD UREA NITROGEN 22 MG/DL (7-18); BUN/CREATININE RATIO 22.2 (6.6-38.0); CALCIUM 9.2 MG/DL (8.5-10.1); CHLORIDE 103 MMOL/L (99-107); CREATININE 0.99 MG/DL (0.40-0.90); GLUCOSE 115 MG/DL (70-104); MAGNESIUM 1.8 MG/DL (1.5-2.4); SODIUM 138 MMOL/L (135-145); TOTAL CARBON DIOXIDE 27.8 MMOL/L (24-32); TOTAL PROTEIN 8.1 G/DL (6.4-8.2); eGFR 53 ML/MIN
[2022-10-05 22:11] VITALS: BP 110/69
[2022-10-06] MEDS ORDERED: normal saline 1000ML IV soln IVB ONE
[2022-10-06 01:11] LABS: CLARITY,URINE SLIGHTLY CLOUDY (Clear); COLOR,URINE YELLOW (Yellow); GLUCOSE, URINE NEGATIVE (Neg); KETONES,URINE NEGATIVE (Neg); LEUKOCYTE ESTERASE ,URINE LARGE (Neg); NITRITES, URINE POSITIVE (Neg); OCCULT BLOOD,URINE NEGATIVE (Neg); PH,URINE 6.5 (4.8-8.0); PROTEIN,URINE NEGATIVE (Neg); UA COLLECTION TYPE STRAIGHT CATH; UROBILINOGEN,URINE 0.2 E.U/dL (0.2-1.0)
[2022-10-06 01:50] LABS: BACTERIA,URINE 4+ /HPF (Neg); MUCUS STRANDS NONE SEEN /LPF (Neg); RBC,URINE 0-2 /HPF (0-2); SQUAMOUS EPITHELIAL CELL,UR FEW /LPF (FEW); WBC CLUMPS,URINE MANY /HPF (NEGATIVE); WBC,URINE TNTC /HPF (0-4)
[2022-10-06] MEDS ORDERED: CefTRIAXone 2gm/D5W 50ml BAG 50 ML IV ONE (02:05)
[2022-10-06] MEDS ORDERED: CEPH500C2 PO (02:12)
== END 2022-10-06 03:43 | disposition home or self-care (01) ==
LOC: ER 19:16
DX: N39.0 Urinary tract infection, site not specified (principal); G89.29 Other chronic pain; M54.50 Low back pain, unspecified; Z88.2 Allergy status to sulfonamides; Z90.49 Acquired absence of other specified parts of digestive tract
CPT/HCPCS: 36415; 70450; 71045; 80053; 81001; 83605; 83735; 84145; 85025; 87040; 87088; 87186; 93005; 96374; 99285; J0696; J7030; 87077; A4353

== ENCOUNTER 2022-11-04 16:28 | Emergency (ER) | payer MEDICARE, BC ==
[~2022-11-04] VITALS: Ht 167.6 cm; Wt 70.0 kg
[2022-11-04 16:35] VITALS: BP 112/43
[2022-11-04] MEDS ORDERED: normal saline 1000ML IV soln IV ONE (16:45)
[2022-11-04 17:17] LABS: BASOPHILS % (AUTO) 0.3 % (0-1); EOSINOPHILS # (AUTO) 0.4 X10'3 (0-0.9); EOSINOPHILS % (AUTO) 6.3 % (0-6); HEMATOCRIT 31.1 % (35.0-45.0); HEMOGLOBIN 10.2 g/dl (12.0-16.0); LYMPHOCYTES # (AUTO) 1.5 X10'3 (1.1-4.8); LYMPHOCYTES % (AUTO) 26.1 % (21-51); MEAN CORPUSCULAR HEMOGLOBIN 32.3 PG (27.0-31.0); MEAN CORPUSCULAR HGB CONC 32.7 g/dL (33.0-36.5); MEAN CORPUSCULAR VOLUME 98.8 FL (78-98); MEAN PLATELET VOLUME 9.2 FL (7.4-10.4); MONOCYTES # (AUTO) 0.8 X10'3 (0-0.9); MONOCYTES % (AUTO) 13.6 % (2-12); NEUTROPHILS # (AUTO) 3.2 X10'3 (1.8-7.7); NEUTROPHILS % (AUTO) 53.7 % (42-75); PLATELET COUNT 180 X10'3 (140-440); RED BLOOD COUNT 3.15 X10'6 (4.20-5.60); RED CELL DISTRIBUTION WIDTH 16.2 % (11.5-14.5); WHITE BLOOD COUNT 5.9 X10'3 (4.5-11.0)
[2022-11-04 17:33] LABS: ALANINE AMINOTRANSFERASE 20 U/L (12-78); ALBUMIN/GLOBULIN RATIO 0.6 (1.1-1.5); ALKALINE PHOSPHATASE 110 IU/L (46-116); ANION GAP 6 (8-16); ASPARTATE AMINO TRANSFERASE 36 U/L (10-37); BILIRUBIN,TOTAL 0.3 MG/DL (0.1-1.0); BLOOD UREA NITROGEN 18 MG/DL (7-18); BUN/CREATININE RATIO 16.7 (6.6-38.0); CALCIUM 9.1 MG/DL (8.5-10.1); CHLORIDE 103 MMOL/L (99-107); CREATININE 1.08 MG/DL (0.40-0.90); GLUCOSE 116 MG/DL (70-104); POTASSIUM 5.4 MMOL/L (3.5-5.1); SODIUM 137 MMOL/L (135-145); eGFR 48 ML/MIN
[2022-11-04] MEDS ORDERED: furosemide 10 MG/1 ML 10ml inj IV ONE (18:00)
[2022-11-04 18:15] LABS: CLARITY,URINE CLEAR (Clear); COLOR,URINE YELLOW (Yellow); GLUCOSE, URINE NEGATIVE (Neg); KETONES,URINE NEGATIVE (Neg); LEUKOCYTE ESTERASE ,URINE NEGATIVE (Neg); NITRITES, URINE NEGATIVE (Neg); OCCULT BLOOD,URINE NEGATIVE (Neg); PH,URINE 6.5 (4.8-8.0); PROTEIN,URINE NEGATIVE (Neg); UROBILINOGEN,URINE 0.2 E.U/dL (0.2-1.0)
[2022-11-04 18:16] LABS: UA COLLECTION TYPE STRAIGHT CATH
[2022-11-04] MEDS ORDERED: OLANZapine 5mg rapidly disint. tablet PO ONE (18:45)
--- NOTE | 2022-11-04 20:06 | NUR ---
TX AT BEDSIDE. PT AND MOTHER LEAVING. MOTHER MEETING TX VAN AT HOME.
== END 2022-11-04 20:10 | disposition home or self-care (01) ==
LOC: ER 16:29
DX: F03.90 Unspecified dementia, unspecified severity, without behavioral disturbance, psychotic disturbance, mood disturbance, and anxiety (principal); E86.0 Dehydration; E87.5 Hyperkalemia; G89.29 Other chronic pain; M54.50 Low back pain, unspecified; Z88.2 Allergy status to sulfonamides; Z90.49 Acquired absence of other specified parts of digestive tract
CPT/HCPCS: 36415; 80053; 81003; 84145; 85025; 96361; 96374; 99284; J1940; J7030; A4353

== ENCOUNTER 2023-01-08 15:19 | Inpatient (IN) | payer MEDICARE, BC ==
[~2023-01-08] VITALS: Ht 167.6 cm; Wt 81.8 kg
[2023-01-08] MEDS ORDERED: normal saline 1000ML IV soln IVB ONE (16:10)
[2023-01-08 16:44] LABS: BASOPHILS % (AUTO) 0.2 % (0-1); EOSINOPHILS # (AUTO) 0.2 X10'3 (0-0.9); EOSINOPHILS % (AUTO) 3.6 % (0-6); HEMATOCRIT 29.6 % (35.0-45.0); HEMOGLOBIN 9.9 g/dl (12.0-16.0); LYMPHOCYTES # (AUTO) 1.6 X10'3 (1.1-4.8); LYMPHOCYTES % (AUTO) 29.4 % (21-51); MEAN CORPUSCULAR HEMOGLOBIN 32.6 PG (27.0-31.0); MEAN CORPUSCULAR HGB CONC 33.3 g/dL (33.0-36.5); MEAN CORPUSCULAR VOLUME 98.2 FL (78-98); MEAN PLATELET VOLUME 9.7 FL (7.4-10.4); MONOCYTES # (AUTO) 0.7 X10'3 (0-0.9); MONOCYTES % (AUTO) 11.9 % (2-12); NEUTROPHILS # (AUTO) 3.1 X10'3 (1.8-7.7); NEUTROPHILS % (AUTO) 54.9 % (42-75); PLATELET COUNT 134 X10'3 (140-440); RED BLOOD COUNT 3.02 X10'6 (4.20-5.60); WHITE BLOOD COUNT 5.6 X10'3 (4.5-11.0)
[2023-01-08 16:55] LABS: ALANINE AMINOTRANSFERASE 25 U/L (12-78); ALBUMIN 2.9 G/DL (3.4-5.0); ALBUMIN/GLOBULIN RATIO 0.7 (1.1-1.5); ALKALINE PHOSPHATASE 93 IU/L (46-116); ANION GAP 3 (8-16); ASPARTATE AMINO TRANSFERASE 39 U/L (10-37); BILIRUBIN,TOTAL 0.2 MG/DL (0.1-1.0); BLOOD UREA NITROGEN 13 MG/DL (7-18); BUN/CREATININE RATIO 14.8 (10.0-20.0); CALCIUM 8.6 MG/DL (8.5-10.1); CHLORIDE 97 MMOL/L (99-107); CREATININE 0.88 MG/DL (0.40-0.90); GLUCOSE 88 MG/DL (70-104); MAGNESIUM 1.8 MG/DL (1.5-2.4); PHOSPHORUS 4.5 MG/DL (2.3-4.5); POTASSIUM 4.4 MMOL/L (3.5-5.1); SODIUM 131 MMOL/L (135-145); TOTAL CARBON DIOXIDE 30.9 MMOL/L (24-32); TOTAL PROTEIN 7.2 G/DL (6.4-8.2); eGFR 61 ML/MIN
[2023-01-08 18:40] LABS: CLARITY,URINE CLEAR (Clear); COLOR,URINE YELLOW (Yellow); GLUCOSE, URINE NEGATIVE (Neg); KETONES,URINE NEGATIVE (Neg); LEUKOCYTE ESTERASE ,URINE NEGATIVE (Neg); NITRITES, URINE NEGATIVE (Neg); OCCULT BLOOD,URINE NEGATIVE (Neg); PROTEIN,URINE NEGATIVE (Neg); UROBILINOGEN,URINE 0.2 E.U/dL (0.2-1.0)
[2023-01-08 18:53] LABS: UA COLLECTION TYPE CLN CATCH MIDSTREAM
[2023-01-08] MEDS ORDERED: magnesium Cl slow-release 64mg tablet PO PRN (19:15)
[2023-01-08] MEDS ORDERED: magnesium 2GM in 50ml NS 50 ML IV PRN (19:15)
[2023-01-08] MEDS ORDERED: morphine 2 MG/ML inj. syringe IV PRN (19:15)
[2023-01-08] MEDS ORDERED: HYDROcodone/acetaminophen 10/325mg tab PO PRN (19:15)
[2023-01-08] MEDS ORDERED: magnesium hydroxide 30ml (MOM) UD suspension PO PRN (19:15)
[2023-01-08] MEDS ORDERED: acetaminophen 325mg tablet PO PRN (19:15)
[2023-01-08] MEDS ORDERED: ondansetron/PF 4mg/2ml inj IV PRN (19:15)
[2023-01-08] MEDS ORDERED: potassium Cl 20 mEq SR tablet PO PRN ×2 (19:15)
[2023-01-08] MEDS ORDERED: potassium Cl 40MEQ/1/2NS 520ml 520 ML IV PRN (19:15)
[2023-01-08] MEDS ORDERED: magnesium 4gm in 100ml NS 100 ML IV PRN (19:15)
[2023-01-08] MEDS ORDERED: HYDROcodone/acetaminophen 5mg/325mg tablet PO PRN (19:15)
[2023-01-08] MEDS ORDERED: mag hydrox/Alum hydrox/simeth 30ml oral suspension PO PRN (19:15)
[2023-01-08 19:42] LABS: HEMOGLOBIN A1C 5.3 % (4.5-6.2)
[2023-01-08] MEDS: docusate sod 100mg capsule PO SCH (20:00)
[2023-01-08] MEDS: K and/or MAG REPLACEMENT MC SCH (20:35)
--- NOTE | 2023-01-08 21:37 | NUR ---
PATIENT UP TO USE BEDSIDE COMMODE NEEDS 2 PERSON ASSIST
--- NOTE | 2023-01-08 23:16 | NUR ---
PATIENT SUPINE IN BED EYES CLOSED COVERS ON RR EVEN UN LABORED NO OBSERVABLE S/S OF ACUTE STRESS OR NEEDS AT THIS TIME
--- NOTE | 2023-01-09 00:35 | NUR ---
Patients daughter Camila would like to be notified when patient is transferred to a room. [phone]
--- NOTE | 2023-01-09 05:09 | NUR ---
Patient refusing lab draw at this time. "NO I DONT WANT ANY LABS. NO POKES." Will attempt at another time.
--- NOTE | 2023-01-09 05:53 | NUR ---
Second attempt made to obtain labs. Patient unwilling. "I dont want to be poked!!!"
--- NOTE | 2023-01-09 06:52 | NUR ---
NOTIFIED PT DAUGHTER OF HER ROOM PLACEMENT
[2023-01-09 07:09] VITALS: BP 96/30
[2023-01-09 07:17] LABS: BASOPHILS % (AUTO) 0.4 % (0-1); EOSINOPHILS # (AUTO) 0.2 X10'3 (0-0.9); HEMATOCRIT 32.5 % (35.0-45.0); LYMPHOCYTES # (AUTO) 1.7 X10'3 (1.1-4.8); LYMPHOCYTES % (AUTO) 26.1 % (21-51); MEAN CORPUSCULAR HEMOGLOBIN 32.8 PG (27.0-31.0); MEAN CORPUSCULAR HGB CONC 33.8 g/dL (33.0-36.5); MEAN CORPUSCULAR VOLUME 97.2 FL (78-98); MEAN PLATELET VOLUME 9.9 FL (7.4-10.4); MONOCYTES # (AUTO) 0.6 X10'3 (0-0.9); MONOCYTES % (AUTO) 9.3 % (2-12); NEUTROPHILS % (AUTO) 61.2 % (42-75); PLATELET COUNT 155 X10'3 (140-440); RED BLOOD COUNT 3.35 X10'6 (4.20-5.60); RED CELL DISTRIBUTION WIDTH 14.9 % (11.5-14.5); WHITE BLOOD COUNT 6.5 X10'3 (4.5-11.0)
[2023-01-09 07:22] LABS: % IRON SATURATION 13 % (11-46); IRON 35 UG/DL (49-151); TOTAL IRON BINDING CAPACITY 260 UG/DL (259-388)
[2023-01-09 07:45] LABS: ALANINE AMINOTRANSFERASE 27 U/L (12-78); ALBUMIN 3.1 G/DL (3.4-5.0); ALBUMIN/GLOBULIN RATIO 0.7 (1.1-1.5); ALKALINE PHOSPHATASE 93 IU/L (46-116); ANION GAP 7 (8-16); ASPARTATE AMINO TRANSFERASE 42 U/L (10-37); BILIRUBIN,TOTAL 0.4 MG/DL (0.1-1.0); BLOOD UREA NITROGEN 10 MG/DL (7-18); CHLORIDE 100 MMOL/L (99-107); CHOL/HDL RATIO 2.4 (0.00-4.99); CHOLESTEROL 171 MG/DL (0-200); CREATININE 0.83 MG/DL (0.40-0.90); FERRITIN 89 NG/ML (8-252); GLUCOSE 73 MG/DL (70-104); HDL CHOLESTEROL 70 MG/DL (35-60); LDL CHOLESTEROL 80 MG/DL (50-100); MAGNESIUM 1.7 MG/DL (1.5-2.4); SODIUM 135 MMOL/L (135-145); TOTAL CARBON DIOXIDE 28.2 MMOL/L (24-32); TOTAL PROTEIN 7.8 G/DL (6.4-8.2); TRIGLYCERIDES 42 MG/DL (20-135); eGFR 65 ML/MIN
[2023-01-09] MEDS: enoxaparin 40mg/0.4ml syringe SUBCUT SCH (08:00)
[2023-01-09] MEDS: K and/or MAG REPLACEMENT MC SCH ×2 (08:00→20:00)
[2023-01-09] MEDS: docusate sod 100mg capsule PO SCH ×2 (08:00→19:47)
[2023-01-09] MEDS: aspirin 325mg tablet PO SCH (09:55)
[2023-01-09] MEDS: atorvastatin 20mg tablet PO SCH (09:56)
[2023-01-09 11:26] VITALS: BP 119/46
[2023-01-09 15:20] VITALS: BP 110/44
[2023-01-09] MEDS ORDERED: OLAN5TAB75 PO (17:04)
[2023-01-09] MEDS ORDERED: DOCU100C40 PO (17:04)
[2023-01-09] MEDS ORDERED: ACET325T55 PO (17:04)
[2023-01-09] MEDS ORDERED: NITR50CA PO (17:04)
[2023-01-09] MEDS ORDERED: LYSI500T11 PO (17:04)
[2023-01-09] MEDS ORDERED: LACTC PO (17:04)
[2023-01-09] MEDS ORDERED: TRAZ-251 PO (17:04)
[2023-01-09 18:00] VITALS: BP 125/50
--- NOTE | 2023-01-09 18:26 | NUR ---
Problems reprioritized. Patient report given, questions answered & plan of care reviewed with NIKKY SWANSON.
[2023-01-09] MEDS: oxybutynin 5mg tablet PO SCH (19:48)
--- NOTE | 2023-01-09 20:00 | NUR ---
Student documentation: I have reviewed and agree with all interventions, assessments performed and documented by Azul Maldonado LVN.
[2023-01-09 22:00] VITALS: BP 136/43
[2023-01-09] MEDS: traZODone 50mg tablet PO SCH (22:12)
[2023-01-09] MEDS: mirtazapine 15mg tablet PO SCH (22:12)
[2023-01-09] MEDS: donepezil 5mg tablet PO SCH (22:12)
[2023-01-09] MEDS: acetaminophen 325mg tablet PO SCH (22:12)
[2023-01-10 02:00] VITALS: BP 139/52
[2023-01-10 06:54] VITALS: BP 90/36
[2023-01-10 07:29] LABS: BASOPHILS % (AUTO) 0.3 % (0-1); EOSINOPHILS # (AUTO) 0.3 X10'3 (0-0.9); EOSINOPHILS % (AUTO) 2.8 % (0-6); HEMATOCRIT 31.4 % (35.0-45.0); HEMOGLOBIN 10.6 g/dl (12.0-16.0); LYMPHOCYTES # (AUTO) 2.4 X10'3 (1.1-4.8); LYMPHOCYTES % (AUTO) 24.6 % (21-51); MEAN CORPUSCULAR HEMOGLOBIN 32.8 PG (27.0-31.0); MEAN CORPUSCULAR HGB CONC 33.6 g/dL (33.0-36.5); MEAN CORPUSCULAR VOLUME 97.7 FL (78-98); MEAN PLATELET VOLUME 9.8 FL (7.4-10.4); MONOCYTES # (AUTO) 0.9 X10'3 (0-0.9); MONOCYTES % (AUTO) 9.9 % (2-12); NEUTROPHILS % (AUTO) 62.4 % (42-75); PLATELET COUNT 144 X10'3 (140-440); RED BLOOD COUNT 3.22 X10'6 (4.20-5.60); RED CELL DISTRIBUTION WIDTH 15.1 % (11.5-14.5); WHITE BLOOD COUNT 9.6 X10'3 (4.5-11.0)
[2023-01-10 07:53] LABS: ALANINE AMINOTRANSFERASE 21 U/L (12-78); ALBUMIN 2.9 G/DL (3.4-5.0); ALBUMIN/GLOBULIN RATIO 0.6 (1.1-1.5); ALKALINE PHOSPHATASE 87 IU/L (46-116); ANION GAP 5 (8-16); ASPARTATE AMINO TRANSFERASE 38 U/L (10-37); BILIRUBIN,TOTAL 0.5 MG/DL (0.1-1.0); BLOOD UREA NITROGEN 18 MG/DL (7-18); BUN/CREATININE RATIO 18.9 (10.0-20.0); CHLORIDE 99 MMOL/L (99-107); CREATININE 0.95 MG/DL (0.40-0.90); GLUCOSE 79 MG/DL (70-104); MAGNESIUM 1.9 MG/DL (1.5-2.4); POTASSIUM 4.5 MMOL/L (3.5-5.1); SODIUM 133 MMOL/L (135-145); TOTAL CARBON DIOXIDE 29.2 MMOL/L (24-32); TOTAL PROTEIN 7.6 G/DL (6.4-8.2); eGFR 55 ML/MIN
[2023-01-10] MEDS ORDERED: non-formulary drug (Lysine (l-Lysine) 2 TAB) PO SCH (08:00)
[2023-01-10] MEDS ORDERED: docusate sod 100mg capsule PO SCH (08:00)
[2023-01-10] MEDS: K and/or MAG REPLACEMENT MC SCH ×2 (08:00→20:00)
[2023-01-10] MEDS: aspirin 325mg tablet PO SCH (08:13)
[2023-01-10] MEDS: multivitamins, therapeutics tablet PO SCH (08:13)
[2023-01-10] MEDS: cholecalciferol (vitamin D3) 1,000 unit (25mcg) tablet PO SCH (08:13)
[2023-01-10] MEDS: lactobacillus rhamnosus 10,000 MMU CELLS/CAPSULE PO SCH (08:13)
[2023-01-10] MEDS: atorvastatin 20mg tablet PO SCH (08:13)
[2023-01-10] MEDS: ESCITALOPRAM OXALATE 5 MG TABLET PO SCH (08:14)
[2023-01-10] MEDS: docusate sod 100mg capsule PO SCH ×2 (08:14→21:29)
[2023-01-10] MEDS: OLANZapine 2.5MG tablet PO SCH (08:14)
[2023-01-10] MEDS: montelukast 10mg tablet PO SCH (08:14)
[2023-01-10] MEDS: enoxaparin 40mg/0.4ml syringe SUBCUT SCH (08:15)
[2023-01-10] MEDS: nitrofurantoin macrocrystal 50mg capsule PO SCH (08:15)
[2023-01-10] MEDS: oxybutynin 5mg tablet PO SCH ×2 (08:15→21:30)
[2023-01-10] MEDS: ascorbic acid 500mg tablet PO SCH (08:15)
--- NOTE | 2023-01-10 09:58 | NUR ---
Received TC from dietary stating they spoke to pt's daughter who is requesting pt get ground meats and reports pt doesn't have her dentures. Pt currently on an EC7 heart healthy diet, documented with 50% PO intake of protein and 100% of milk at first meal with 75% PO intake of second meal. Noted current texture modification is not per ST recs. Recommend BSS with ST for most appropriate texture modification. Noted pt on pureed food with thin liquids per ST recs 12/25-12/31/21 at previous admit. Will continue with mechanical soft food and ground meats in the mean time. Also recommend discontinuing heart healthy diet restriction in view of geriatric age. Will continue to follow. Addendum: 01/10/23 at [address] Amended: Links added.
[2023-01-10 11:06] VITALS: BP 123/73
--- NOTE | 2023-01-10 11:33 | NUR ---
PAGED DR HUANG RE: PAGER ID: [phone] MESSAGE: JAY ZUÑIGA. [facility] SLIGHTLY REDDENED WITH SLIGHT DISCHARGE. DAUGHTER CONCERNED IT MAY BE GETTING INFECTED. REQUESTED EYE DROPS. TAJ [id number] TELE
[2023-01-10] MEDS: ciprofloxacin 0.3% 2.5ml ophthalmic solution LEFTEYE SCH ×4 (13:19→23:30)
[2023-01-10 16:02] VITALS: BP 115/42
--- NOTE | 2023-01-10 18:07 | NUR ---
Problems reprioritized. Patient report given, questions answered & plan of care reviewed with JOSE RN.
[2023-01-10 19:00] VITALS: BP 93/72
[2023-01-10] MEDS: donepezil 5mg tablet PO SCH (21:29)
[2023-01-10] MEDS: mirtazapine 15mg tablet PO SCH (21:29)
[2023-01-10] MEDS: traZODone 50mg tablet PO SCH (21:30)
[2023-01-10] MEDS: acetaminophen 325mg tablet PO SCH (21:33)
[2023-01-10 23:00] VITALS: BP 100/78
--- NOTE | 2023-01-11 00:05 | NUR ---
Pt very agitated and shouting out loudly. Pt stating she is leaving and not making sense. Pt talking like someone is in the room with her. MD notified, MD gave verbal order to give haldol 2mg IM q4hrs PRN for agitation/anxiety. Orders updated.
[2023-01-11] MEDS ORDERED: haloperidol lactate 5mg/ml inj IM PRN (00:15)
[2023-01-11 03:00] VITALS: BP 108/72
[2023-01-11] MEDS: ciprofloxacin 0.3% 2.5ml ophthalmic solution LEFTEYE SCH ×3 (04:25→12:59)
[2023-01-11 06:00] VITALS: BP 126/47
--- NOTE | 2023-01-11 06:59 | NUR ---
This RN evaluated and agrees w/the CALL CENTER SPECIALIST's physical assessment f/this patient.
[2023-01-11] MEDS: K and/or MAG REPLACEMENT MC SCH (08:00)
[2023-01-11] MEDS: oxybutynin 5mg tablet PO SCH (08:56)
[2023-01-11] MEDS: ascorbic acid 500mg tablet PO SCH (08:56)
[2023-01-11] MEDS: nitrofurantoin macrocrystal 50mg capsule PO SCH (08:56)
[2023-01-11] MEDS: montelukast 10mg tablet PO SCH (08:56)
[2023-01-11] MEDS: aspirin 325mg tablet PO SCH (08:57)
[2023-01-11] MEDS: docusate sod 100mg capsule PO SCH (08:58)
[2023-01-11] MEDS: multivitamins, therapeutics tablet PO SCH (08:58)
[2023-01-11] MEDS: atorvastatin 20mg tablet PO SCH (08:58)
[2023-01-11] MEDS: cholecalciferol (vitamin D3) 1,000 unit (25mcg) tablet PO SCH (08:58)
[2023-01-11] MEDS: lactobacillus rhamnosus 10,000 MMU CELLS/CAPSULE PO SCH (08:58)
[2023-01-11] MEDS: ESCITALOPRAM OXALATE 5 MG TABLET PO SCH (08:58)
[2023-01-11] MEDS: enoxaparin 40mg/0.4ml syringe SUBCUT SCH (08:58)
[2023-01-11] MEDS: OLANZapine 2.5MG tablet PO SCH (08:58)
[2023-01-11 11:00] VITALS: BP 111/54
--- NOTE | 2023-01-11 12:53 | NUR ---
SALES AND RETAIL MANAGEMENT RECRUITER documentation: I have reviewed and agree with all interventions, assessments performed and documented by ADAMS ALAS LVN .
[2023-01-11 15:00] VITALS: BP 119/47
--- NOTE | 2023-01-11 17:03 | NUR ---
Problems reprioritized. Patient report given, questions answered & plan of care reviewed with Tanya SWANSON from [facility]. Pt picked up by [employer]. Pt PIV discontinued. Telebox discontinued. Pt shoes, shirt, and misc toiletries placed in personal belongings bag. Addendum: 01/11/23 at 1716 by Jarrett Merrill LVN, LVN Amended: Links added.
== END 2023-01-11 17:08 | DRG 57 ==
LOC: EDBD 15:19 → ER 15:19 → ED HOLD 19:19 → PCU 3S 01-09 06:59
PROVIDERS: ADMIT Internal Medicine; ATTEND Internal Medicine
DX: G30.9 Alzheimer's disease, unspecified (principal); F02.C4 Dementia in other diseases classified elsewhere, severe, with anxiety; E87.1 Hypo-osmolality and hyponatremia; J44.9 Chronic obstructive pulmonary disease, unspecified; F41.9 Anxiety disorder, unspecified; E86.0 Dehydration; R53.81 Other malaise; G89.29 Other chronic pain; F32.A Depression, unspecified; M54.9 Dorsalgia, unspecified; D64.9 Anemia, unspecified; I25.10 Atherosclerotic heart disease of native coronary artery without angina pectoris; Z80.1 Family history of malignant neoplasm of trachea, bronchus and lung; Z81.8 Family history of other mental and behavioral disorders; Z82.0 Family history of epilepsy and other diseases of the nervous system; Z82.5 Family history of asthma and other chronic lower respiratory diseases; Z83.3 Family history of diabetes mellitus; Z87.440 Personal history of urinary (tract) infections; Z88.2 Allergy status to sulfonamides; Z90.49 Acquired absence of other specified parts of digestive tract; Z79.899 Other long term (current) drug therapy; Z79.82 Long term (current) use of aspirin
CPT/HCPCS: 36415; 70450; 80053; 80061; 81003; 82607; 82728; 83036; 83540; 83550; 83735; 84100; 85025; 86592; 87081; 92508; 92616; 93306; 93880; 97161; 97530; 99285; A6250; G0378; J1630; J1650; J7030; J7040